=== PATIENT | female | born 1945 | race Caucasian/White ===

== ENCOUNTER 2019-09-21 11:10 | Outpatient (CLI) | payer MEDICARE, SELFPAY ==
[2019-09-21 11:53] LABS: Basophils % 0.5 %; Eosinophils # 0.1 10^3/uL (0.0-0.8); Eosinophils % 1.1 %; Hematocrit 45.5 % (37.0-47.0); Lymphocytes # 2.1 10^3/uL (0.8-4.8); Lymphocytes % 39.1 %; Mean Corpuscular Hemoglobin 29.2 pg (28.0-34.0); Mean Corpuscular Volume 88.5 fL (81-99); Mean Platelet Volume 12.3 fL (7.4-10.4); Monocytes # 0.5 10^3/uL (0.2-0.9); Monocytes % 9.3 %; Neutrophils # 2.7 10^3/uL (1.8-7.7); Neutrophils % 49.8 %; Nucleated Red Blood Cells % 0 %; Platelet Count 138 10^3/cmm (130-400); Red Blood Count 5.14 10^6/uL (4.1-5.3); Red Cell Distribution Width 12.9 % (12.1-15.1); White Blood Count 5.5 10^3/uL (4.0-10.0)
[2019-09-21 12:10] LABS: Alanine Aminotransferase 40 U/L (0-33); Albumin Level 4.2 g/dL (3.5-5.2); Alkaline Phosphatase 104 IU/L (35-105); Anion Gap 15.9 (5-19); Aspartate Amino Transferase 53 U/L (0-32); Blood Urea Nitrogen 18 mg/dL (8-23); Calcium 10.9 mg/Dl (8.8-10.2); Carbon Dioxide 27 mmol/L (22-29); Chloride 99 mmol/L (98-107); Glucose 116 mg/dL (74-106); Lactate Dehydrogenase 225 U/L (135-214); Potassium 3.9 mmol/L (3.5-5.1); Sodium 138 mmol/L (136-145); Total Bilirubin 0.9 mg/dL (0.15-1.2); Total Protein 8.2 g/dL (6.6-8.7)
--- NOTE | 2019-09-25 20:33 | ONC FU_ITS ---
Dr. Walton Patient Follow-Up Note Patient: Siobhan Oliver Unit #: [id number]: 1945 Dicatated By: Sergio Walton M.D.Date of Visit:Sep 21, 2019 Onc Med Follow-up/Prog Note Chief Complaint: Breast cancer/acute promyelocytic leukemia. 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 She had presented with a left breast palpable nodule. Her mammogram on 09/16/2012 showed a 2.7 cm mass in the left breast located posterior to the nipple. She was diagnosed with stage IIB (pT2, pN1a, M0) infiltrating ductal carcinoma of the left breast in September 2013, status post an excisional biopsy. Surgical pathology showed 2.5 cm infiltrating ductal carcinoma, grade 1/3, with positive margins. Prognostic profile was ER 99%, WI 97%, HER-2/anthony 1+ by IHC, FISH not amplified at 1.1. On 10/29/2013 she underwent a left modified radical mastectomy and axillary node dissection. Her surgical pathology showed residual microscopic foci of the tumor in the breast parenchyma distant from the previous biopsy site and in the dermal connective tissue of the skin overlying the nipple. Margins were negative. One sentinel lymph node out of total 8 harvested lymph nodes was positive for metastatic disease. Her surgery was complicated with significant hematoma and recurrent Staph infection, retreated with Bactrim. CT of the abdomen and pelvis on 11/13/2013 showed diffuse fatty liver infiltration but no evidence of metastatic disease. She had a baseline significant hepatic transaminitis up to 2 times of upper limit of normal. She received adjuvant systemic chemotherapy with 4 cycles of docetaxel and cyclophosphamide from 12/07/13 to 03/12/14. She had significant hyperglycemia. Her transaminitis also deepened transiently, but did not progress. She began on adjuvant Arimidex in May 2014. Adjuvant radiation treatment to the chest wall and the left supraclavicular region was completed on 06/03/14, during which she developed acute pancreatitis. She also had worsening diffuse bone aches. Bone scan on 08/02/2015 was negative for metastatic disease, but showed diffuse arthropathy. On 07/21/2015 CA 15 3 was 36, which was down from 42 on 11/12/2013. CA-27-29 was 56. Significance of elevated tumor markers was unclear. Restaging CT of the chest, abdomen, and pelvis on 12/09/2015 was without metastatic disease. She continued adjuvant hormonal therapy with anastrozole. On a follow-up visit in August 2016, her CBC showed normal hemoglobin at 14.2 g, but the white count had decreased to 2100 and the platelet count had decreased to 94,000. The absolute neutrophil count was 1000. She continued Arimidex. A repeat CBC on 09/18/2016 showed hemoglobin stable at 13.9 g but with further decrease in the white blood cell count to 1500 with ANC 400. The platelet count was down to 89,000. Bone marrow aspiration/biopsy on 10/11/2016 showed acute myeloid leukemia with a t (15;17) translocation 90% of metaphases, consistent with acute promyelocytic leukemia. She was referred to [facility] for treatment of the leukemia. She has been under the care of Dr. Coretta Barnes. She underwent induction therapy with arsenic trioxide and Atra at [facility] from 10/20/2016 to 12/05/2016. On 12/24/2016 she began her maintenance therapy, which consisting of four 8-week cycles of treatment with arsenic trioxide and prednisone together with Atra. With each cycle the arsenic trioxide was administered on days 1 through 5 weekly for 4 weeks followed by 4 weeks off treatment. The Atra was administered on a 2-week on/2-week schedule. She began her 4th cycle on 06/10/2017. She completed her last treatment on 07/05/2017. She had a follow-up visit at [facility] on 07/08/2017. At that point she was felt to be in remission. Her other medical illnesses include hypertension, hyperlipidemia, type II diabetes, and GERD. She has a history of pancreatitis. She also has peripheral neuropathy, restless leg syndrome, and anxiety/depression. She has a history of smoking 1 pack of cigarettes daily for 15 years. She quit smoking more than 35 years ago. INTERIM HISTORY: In August 2017 she began further adjuvant hormonal therapy with exemestane 25 mg daily. She had followup at [facility] on 11/04/2017. Her bone marrow biopsy showed no morphologic evidence of acute leukemia. She had a follow-up here on 11/06/2017, and that at point she continued exemestane, though she was having some fatigue with it. Subsequent to that visit, she continued to have worsening fatigue, and I did opt to have her stop the exemestane. I had seen her for a follow-up visit again on 01/29/2018, and at that point she did agree to continue adjuvant hormonal therapy with tamoxifen 20 mg daily. At her followup visit on 02/09/2019 the tamoxifen was put on hold due to increased fatigue and musculoskeletal pain. She is seen for a scheduled visit. She has been feeling pretty good generally. She has pretty energy in the mornings. Her ECOG score is 1. She has good appetite. She has no fever, night sweats, or hot flashes. She has some shortness of breath, which she attributes to her weight. She has not had cough, and she does not complain of chest pain. Last week she was having nausea and diarrhea, but that has resolved. She has no other GI or complaints. She has pain in her back and knees, which is chronic. She also complains that her ankles swell. She does not complain of headache. She says her balance is not that great. She has numbness in the lateral aspect of her left thigh. She has no other focal neurologic symptoms. Medications: Atorvastatin Calcium 1 Tablet (of 10 mg) Oral daily, Calcium 1 Tablet (of 600 mg) Oral daily, Furosemide 1 Tablet (of 20 mg) Oral daily, Gabapentin 1 (300 mg) Capsule Oral t.i.d., Hydrocodone-Acetaminophen 1 - 2 (7.5-325 mg) Tablet Oral four times a day PRN, Ibuprofen 1 - 2 (200 mg) Capsule Oral four times a day PRN, Klor-Con M10 1 Tablet (of 10 meq) Tablet, controlled release Oral daily, Losartan Potassium 1 Tablet (of 50 mg) Oral daily, ROPINIRole HCl 1 Tablet (of 1 mg) Oral t.i.d., Vitamin D3 2 Tablet (of 2000 Units) Tablet Oral daily Allergies: Anesthesia Needle [id number] Review of Systems: Constitutional - Her energy is okay. She does light work at home. Her activity is somewhat restricted due to swelling and pain. Her appetite is good and her weight is up 12 pounds since her last visit. No fever, chills, hot flashes, or night sweats. ECOG score is 1, ENMT - No sinus congestion/drainage. No mouth sores. No sore throat or difficulty swallowing, Hematologic/Lymphatic - No abnormal bruising or bleeding, Respiratory - She has some shortness of breath with activity. No cough. No pleuritic pain or hemoptysis, Cardiovascular - No angina pain. No palpitations, Gastrointestinal - No heartburn or acid reflux. She had an episode of nausea and diarrhea last week. Her symptoms have resolved. No blood in the stool or black stools, Genitourinary (F) - No dysuria or hematuria. No urinary frequency. No urgency or incontinence, Musculoskeletal - She has pain in her back and knees, Integumentary - No skin complications, Neurologic - No headache or dizziness. She has numbness in her left thigh if she stands too long. She has trouble with her balance, Psychiatric - No anxiety or depression. No insomnia. Vital Signs: Performed on Sep 21, 2019 12:45 Height - 62.00 in Weight - 212.2 lbs (HIGH) BSA - 1.96 sq.m BMI - 38.81 (HIGH) Temperature - 98.5 F Pulse - 75 /min Respiration - 24 /min BP - 124/62 mm(hg) O2 Sat - 95 % (LOW) Pain - 8 Physical Examination: Constitutional - She looks pretty good generally, but she has limited mobility, Eyes - Sclerae nonicteric. Conjunctivae clear, ENMT - No lesions noted in the oral cavity, Hematologic/Lymphatic - No cervical or clavicular adenopathy, Respiratory - Lungs are clear with good air movement bilaterally, Cardiovascular - Heart rhythm is regular. There is a II/ systolic murmur. There is no gallop or rub noted, Breasts - The right breast shows no mass. There are no lesions noted in the left chest wall. There is no axillary adenopathy, Abdomen - Soft. Liver and spleen are not enlarged. There is no abdominal mass or ascites noted and there is no inguinal adenopathy, Extremities - Mild edema. Dorsalis pedis pulses are palpable bilaterally, Neurologic - No focal neurologic deficits noted. Lab/Imaging: Test performed on Sep 21, 2019 11:21 Glucose 116 mg/dL BUN 18 mg/dL Creatinine 0.9 mg/dL Cr Clearance (Est) 82.0700 mL/min Sodium 138 mmol/L Potassium 3.9 mmol/L Chloride 99 mmol/L CO2 27 mmol/L Calcium 10.9 mg/dL Protein, Total 8.2 g/dL Albumin 4.2 g/dL Globulin 4.0 g/dL Bilirubin, Total 0.9 mg/dL Alkaline Phosphatase 104 IU/L AST (SGOT) 53 IU/L ALT (SGPT) 40 IU/L WBC 5.5 10^9/L RBC 5.14 10^12/L HGB 15.0 g/dL HCT 45.5 % MCV 88.5 fl MCH 29.2 pg MCHC 33.0 g/dL RDW 12.9 % Platelet Count 138 10^9/L MPV 12.3 fL Neutrophils (Gran) 2.7 10^9/L Lymphocytes 2.1 10^9/L Monocytes 0.5 10^9/L Eosinophils 0.1 10^9/L Basophils 0.0 10^9/L Manual Lymphocytes 39.1 % Manual Monocytes 9.3 % Manual Eosinophils 1.1 % Manual Basophils 0.5 % NRBCs 0.0 /100 WBC Impression: 1. Patient with multifocal grade 1 infiltrating ductal carcinoma of the left breast, pathologic stage least IIB (pT2, pN1a, M0), ER/WI positive and HER-2/anthony negative. She underwent left right modified radical mastectomy on 10/29/13. 2. She received adjuvant chemotherapy with docetaxel and cyclophosphamide 12/07/13 - 03/12/14, complicated with grade 2 peripheral neuropathy. She had baseline transaminitis which remained without progression. 3. She completed adjuvant radiation treatment on 06/03/14. She began on adjuvant hormonal therapy with Arimidex 1 mg daily in April 2014. Restaging CT of the chest, abdomen, and pelvis on 12/09/2015 was without evidence of disease. 4. She developed progressive pancytopenia since August 2016. Her bone marrow aspiration/biopsy on 10/11/2016 was consistent with acute promyelocytic leukemia. Her other medical illnesses include: 5. Hypertension. 6. Hyperlipidemia. 7. Type II diabetes. 8. GERD. 9. Peripheral neuropathy. 10. Restless leg syndrome. 11. Anxiety/depression. 11. She has a history of pancreatitis. She underwent induction therapy with arsenic trioxide and Atra at [facility] from 10/20/2016 to 12/05/2016. She began cycle 1 of maintenance therapy with arsenic trioxide/prednisone together with Atra on 12/24/2016. She began her 4th cycle of maintenance on 06/10/2017, and she completed her last treatment on 07/05/2017. As of her follow-up at [facility] on 11/04/2017, her leukemia appeared to be in sustained remission. In August 2017 she began further adjuvant hormonal therapy with exemestane 25 mg daily. As of her follow-up visit here on 11/06/2017 she was having some fatigue with it, but it was tolerable. Unfortunately, the fatigue continued to worsen, to the point that she did have to stop taking it. In December 2017 she began further adjuvant hormonal therapy with tamoxifen 20 mg daily. As of her followup visit on 02/09/2019 the tamoxifen was put on hold due to fatigue and significant worsening of joint/bone pain. She has since then been followed on observation/expectant management. Thus far she has been doing well clinically with no evidence of recurrence of the breast cancer or the leukemia. Plan: She remains on observation/expectant management. I will see her again in 6 months, or sooner as needed. Signed By: Sergio Walton M.D. <<Signature on File>>
== END 2019-09-21 11:11 | disposition home or self-care (01) ==
PROVIDERS: Family Provider Electrodiagnostic Medicine; PCP Electrodiagnostic Medicine; Visit Provider Internal Medicine Medical Oncology
DX: C92.41 Acute promyelocytic leukemia, in remission (principal); Z85.3 Personal history of malignant neoplasm of breast; I10 Essential (primary) hypertension; E78.5 Hyperlipidemia, unspecified; E11.9 Type 2 diabetes mellitus without complications; K21.9 Gastro-esophageal reflux disease without esophagitis; G62.9 Polyneuropathy, unspecified; G25.81 Restless legs syndrome; F41.8 Other specified anxiety disorders; Z79.891 Long term (current) use of opiate analgesic; Z90.13 Acquired absence of bilateral breasts and nipples; Z92.21 Personal history of antineoplastic chemotherapy; Z92.3 Personal history of irradiation; Z92.23 Personal history of estrogen therapy; Z87.891 Personal history of nicotine dependence
CPT/HCPCS: 36591; 80053; 83615; 85025; G0463

== ENCOUNTER 2019-10-28 09:06 | Outpatient (CLI) | payer MEDICARE, SELFPAY | END 2019-10-28 09:07 | disposition home or self-care (01) | LOC: ONCMED 09:09 | PROVIDERS: Family Provider Electrodiagnostic Medicine; PCP Electrodiagnostic Medicine; Visit Provider Internal Medicine Medical Oncology | DX: Z45.2 Encounter for adjustment and management of vascular access device (principal) | CPT/HCPCS: 96523 ==

== ENCOUNTER 2019-12-03 13:55 | Outpatient (CLI) | payer MEDICARE, SELFPAY | END 2019-12-03 13:56 | disposition home or self-care (01) | LOC: ONCMED 13:56 | PROVIDERS: Family Provider Electrodiagnostic Medicine; PCP Electrodiagnostic Medicine; Visit Provider Internal Medicine Medical Oncology | DX: Z45.2 Encounter for adjustment and management of vascular access device (principal) | CPT/HCPCS: 96523 ==

== ENCOUNTER 2020-01-04 13:34 | Outpatient (CLI) | payer MEDICARE, SELFPAY | END 2020-01-04 13:35 | disposition home or self-care (01) | LOC: ONCMED 13:36 | PROVIDERS: Family Provider Electrodiagnostic Medicine; PCP Electrodiagnostic Medicine; Visit Provider Internal Medicine Medical Oncology | DX: Z45.2 Encounter for adjustment and management of vascular access device (principal); C50.112 Malignant neoplasm of central portion of left female breast; C92.41 Acute promyelocytic leukemia, in remission; D61.818 Other pancytopenia | CPT/HCPCS: 96523 ==

== ENCOUNTER 2020-01-19 09:41 | Outpatient (CLI) | payer MEDICARE, SELFPAY ==
--- NOTE | 2020-01-19 10:25 | MM_ITS ---
WS: [id number] DIAGNOSTIC RIGHT DIGITAL MAMMOGRAM WITH CAD HISTORY: HX malignant NEOPLASM, LEFT BREAST MASTECTOMY. COMPARISON: None available. Technique: CC, MLO and ML views. Breast composition: There are scattered areas of fibroglandular density. No suspicious masses or joaquín cifications. Benign vascular calcifications. MM/[place] [id number] IMPRESSION: BI-RADS: 2-Benign FOLLOW UP: 1 Year Follow-up
== END 2020-01-19 09:42 | disposition home or self-care (01) ==
LOC: RADSHAW 09:51
PROVIDERS: PCP Electrodiagnostic Medicine; Visit Provider Internal Medicine Medical Oncology
DX: Z85.3 Personal history of malignant neoplasm of breast (principal)
CPT/HCPCS: 77065

== ENCOUNTER 2020-02-19 10:13 | Outpatient (CLI) | payer MEDICARE, SELFPAY | END 2020-02-19 10:14 | disposition home or self-care (01) | LOC: ONCMED 10:17 | PROVIDERS: PCP Electrodiagnostic Medicine; Visit Provider Internal Medicine Medical Oncology | DX: Z45.2 Encounter for adjustment and management of vascular access device (principal) | CPT/HCPCS: 96523 ==

== ENCOUNTER 2020-03-08 11:57 | Outpatient (CLI) | payer MEDICARE, SELFPAY ==
[2020-03-08 12:34] LABS: Basophils % 0.7 %; Eosinophils # 0.1 10^3/uL (0.0-0.8); Eosinophils % 2.4 %; Hematocrit 44.5 % (37.0-47.0); Hemoglobin 14.5 g/dL (11.5-15.3); Lymphocytes # 1.8 10^3/uL (0.8-4.8); Lymphocytes % 33.3 %; Mean Corpuscular HGB Conc 32.6 g/dL (30.0-36.0); Mean Corpuscular Hemoglobin 29.6 pg (28.0-34.0); Mean Corpuscular Volume 90.8 fL (81-99); Mean Platelet Volume 12.4 fL (7.4-10.4); Monocytes # 0.6 10^3/uL (0.2-0.9); Monocytes % 10.1 %; Neutrophils # 2.9 10^3/uL (1.8-7.7); Neutrophils % 53.1 %; Nucleated Red Blood Cells % 0 %; Platelet Count 117 10^3/cmm (130-400); Red Cell Distribution Width 13.2 % (12.1-15.1); White Blood Count 5.5 10^3/uL (4.0-10.0)
[2020-03-08 13:28] LABS: Alanine Aminotransferase 32 U/L (0-33); Albumin Level 4.1 g/dL (3.5-5.2); Alkaline Phosphatase 94 IU/L (35-105); Anion Gap 14.9 (5-19); Aspartate Amino Transferase 46 U/L (0-32); Blood Urea Nitrogen 19 mg/dL (8-23); Calcium 10.4 mg/dL (8.5-10.5); Carbon Dioxide 26 mmol/L (22-29); Chloride 101 mmol/L (98-107); Globulin 3.9 g/dL (1.3-4.6); Glucose 118 mg/dL (65-115); Lactate Dehydrogenase 213 U/L (135-214); Osmolality Calculated 284 mOsm/kg (285-295); Potassium 3.9 mmol/L (3.5-5.1); Sodium 138 mmol/L (136-145)
--- NOTE | 2020-03-11 18:20 | ONC FU_ITS ---
Dr. Walton Patient Follow-Up Note Patient: Siobhan Oliver Unit #: [id number]: 1945 Dicatated By: Sergio Walton M.D.Date of Visit:Mar 08, 2020 Onc Med Follow-up/Prog Note Chief Complaint: Breast cancer/acute promyelocytic leukemia. 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 She had presented with a left breast palpable nodule. Her mammogram on 09/16/2012 showed a 2.7 cm mass in the left breast located posterior to the nipple. She was diagnosed with stage IIB (pT2, pN1a, M0) infiltrating ductal carcinoma of the left breast in September 2013, status post an excisional biopsy. Surgical pathology showed 2.5 cm infiltrating ductal carcinoma, grade 1/3, with positive margins. Prognostic profile was ER 99%, MA 97%, HER-2/anthony 1+ by IHC, FISH not amplified at 1.1. On 10/29/2013 she underwent a left modified radical mastectomy and axillary node dissection. Her surgical pathology showed residual microscopic foci of the tumor in the breast parenchyma distant from the previous biopsy site and in the dermal connective tissue of the skin overlying the nipple. Margins were negative. One sentinel lymph node out of total 8 harvested lymph nodes was positive for metastatic disease. Her surgery was complicated with significant hematoma and recurrent Staph infection, retreated with Bactrim. CT of the abdomen and pelvis on 11/13/2013 showed diffuse fatty liver infiltration but no evidence of metastatic disease. She had a baseline significant hepatic transaminitis up to 2 times of upper limit of normal. She received adjuvant systemic chemotherapy with 4 cycles of docetaxel and cyclophosphamide from 12/07/13 to 03/12/14. She had significant hyperglycemia. Her transaminitis also deepened transiently, but did not progress. She began on adjuvant Arimidex in May 2014. Adjuvant radiation treatment to the chest wall and the left supraclavicular region was completed on 06/03/14, during which she developed acute pancreatitis. She also had worsening diffuse bone aches. Bone scan on 08/02/2015 was negative for metastatic disease, but showed diffuse arthropathy. On 07/21/2015 CA 15 3 was 36, which was down from 42 on 11/12/2013. CA-27-29 was 56. Significance of elevated tumor markers was unclear. Restaging CT of the chest, abdomen, and pelvis on 12/09/2015 was without metastatic disease. She continued adjuvant hormonal therapy with anastrozole. On a follow-up visit in August 2016, her CBC showed normal hemoglobin at 14.2 g, but the white count had decreased to 2100 and the platelet count had decreased to 94,000. The absolute neutrophil count was 1000. She continued Arimidex. A repeat CBC on 09/18/2016 showed hemoglobin stable at 13.9 g but with further decrease in the white blood cell count to 1500 with ANC 400. The platelet count was down to 89,000. Bone marrow aspiration/biopsy on 10/11/2016 showed acute myeloid leukemia with a t (15;17) translocation 90% of metaphases, consistent with acute promyelocytic leukemia. She was referred to [facility] for treatment of the leukemia. She has been under the care of Dr. Coretta Barnes. She underwent induction therapy with arsenic trioxide and Atra at [facility] from 10/20/2016 to 12/05/2016. On 12/24/2016 she began her maintenance therapy, which consisting of four 8-week cycles of treatment with arsenic trioxide and prednisone together with Atra. With each cycle the arsenic trioxide was administered on days 1 through 5 weekly for 4 weeks followed by 4 weeks off treatment. The Atra was administered on a 2-week on/2-week schedule. She began her 4th cycle on 06/10/2017. She completed her last treatment on 07/05/2017. She had a follow-up visit at [facility] on 07/08/2017. At that point she was felt to be in remission. In August 2017 she began further adjuvant hormonal therapy with exemestane 25 mg daily. She had followup at [facility] on 11/04/2017. Her bone marrow biopsy showed no morphologic evidence of acute leukemia. She had a follow-up here on 11/06/2017, and that at point she continued exemestane, though she was having some fatigue with it. Subsequent to that visit, she continued to have worsening fatigue, and I did opt to have her stop the exemestane. I had seen her for a follow-up visit again on 01/29/2018, and at that point she did agree to continue adjuvant hormonal therapy with tamoxifen 20 mg daily. At her followup visit on 02/09/2019 the tamoxifen was put on hold due to increased fatigue and musculoskeletal pain, and she was then followed on observation/expectant management. Her other medical illnesses include hypertension, hyperlipidemia, type II diabetes, and GERD. She has a history of pancreatitis. She also has peripheral neuropathy, restless leg syndrome, and anxiety/depression. She has a history of smoking 1 pack of cigarettes daily for 15 years. She quit smoking more than 35 years ago. INTERIM HISTORY: She is seen for a scheduled visit. She has been feeling fine for her lower back, which she has been hurting more. She had x-rays, which apparently just showed arthritis. Her energy has been okay. She does have limited activity. ECOG score is 1. She has good appetite. She has gained weight. She does not have fever, night sweats, or hot flashes. She has no shortness of breath or cough. She has some pain intermittently in the lateral left chest wall and axilla. She otherwise does not have chest pain. She has heartburn occasionally. She says her bowels have been mostly runny. She has no complaints. She also has pain in her knees and ankles. She does not complain of headache. She has ongoing problems with her balance. She sometimes has numbness/tingling in her left arm. Medications: Atorvastatin Calcium 1 Tablet (of 10 mg) Oral daily, Calcium 1 Tablet (of 600 mg) Oral daily, Furosemide 1 Tablet (of 20 mg) Oral daily, Gabapentin 1 (300 mg) Capsule Oral t.i.d., Hydrocodone-Acetaminophen 1 - 2 (7.5-325 mg) Tablet Oral four times a day PRN, Ibuprofen 1 - 2 (200 mg) Capsule Oral four times a day PRN, Klor-Con M10 1 Tablet (of 10 meq) Tablet, controlled release Oral daily, Losartan Potassium 1 Tablet (of 50 mg) Oral daily, ROPINIRole HCl 1 Tablet (of 1 mg) Oral t.i.d., Vitamin D3 2 Tablet (of 2000 Units) Tablet Oral daily Allergies: Midazolam Review of Systems: Constitutional - She is feeling good generally. Her energy has been OK. She is able to do light housework. Her appetite is good and her weight is up about 6 pounds from last visit. No fever, night sweats, or hot flashes. ECOG score is 1, ENMT - No sinus congestion/drainage. No mouth sores. No sore throat or difficulty swallowing, Hematologic/Lymphatic - No abnormal bruising or bleeding, Breasts - She has intermittent pain in her left breast area near mastectomy site, Respiratory - No shortness of breath. No cough. No pleuritic pain or hemoptysis, Cardiovascular - No angina pain. No palpitations, Gastrointestinal - No nausea or vomiting. She occasionally has heartburn or acid reflux. No diarrhea or constipation. She says her bowels lately have been mostly runny. No blood in the stool or black stools, Genitourinary (F) - No dysuria or hematuria. No urinary frequency. No urgency or incontinence, Musculoskeletal - She has some lower back pain. She also has generalized joint pain, especially the knees and ankles. Her pain is adequately managed with hydrocodone/APAP- 7.5/325 mg, Integumentary - No skin complications, Neurologic - No headache or dizziness. She continues to have difficulty with her equilibrium. No numbness or tingling. No other focal neurologic symptoms, Psychiatric - No anxiety or depression. No insomnia. Vital Signs: Performed on Mar 08, 2020 13:44 Height - 62.00 in Weight - 218.2 lbs (HIGH) BSA - 1.98 sq.m BMI - 39.91 (HIGH) Temperature - 99.1 F (HIGH) Pulse - 100 /min Respiration - 24 /min BP - 96/59 mm(hg) O2 Sat - 94 % (LOW) Pain - 0 Physical Examination: Constitutional - She looks pretty good generally, Eyes - Sclerae nonicteric. Conjunctivae clear, ENMT - No lesions noted in the oral cavity, Hematologic/Lymphatic - No cervical or clavicular adenopathy, Respiratory - Lungs are clear with good air movement bilaterally, Cardiovascular - Heart rhythm is regular. There is a II/ systolic murmur. There is no gallop or rub noted, Breasts - There are no lesions noted in the left chest wall. There is no axillary adenopathy, Abdomen - Soft. Liver and spleen are not enlarged. There is no abdominal mass or ascites noted and there is no inguinal adenopathy, Extremities - Mild edema. Dorsalis pedis pulses are palpable bilaterally, Neurologic - No focal neurologic deficits noted. Lab/Imaging: Test performed on Mar 08, 2020 12:10 LDH (Total) 213 U/L Sodium 138 mmol/L Potassium 3.9 mmol/L Chloride 101 mmol/L CO2 26 mmol/L Anion Gap 14.9 BUN 19 mg/dL Creatinine 0.8 mg/dL Cr Clearance (Est) 93.48 mL/min Glucose 118 mg/dL Calcium 10.4 mg/dL Protein, Total 8.0 g/dL Albumin 4.1 g/dL Globulin 3.9 g/dL Bilirubin, Total 1.0 mg/dL ALT (SGPT) 32 U/L AST (SGOT) 46 U/L Alkaline Phosphatase 94 IU/L WBC 5.5 10 3/uL RBC 4.90 10 6/uL HGB 14.5 g/dL HCT 44.5 % MCV 90.8 fL MCH 29.6 pg MCHC 32.6 g/dL RDW 13.2 % Platelet Count 117 10 3/cmm MPV 12.4 fL Neutrophils 2.9 10 3/uL Lymphocytes 1.8 10 3/uL Monocytes 0.6 10 3/uL Eosinophils 0.1 10 3/uL Basophils 0.0 10 3/uL Neutrophil % 53.1 % Lymphocyte % 33.3 % Monocyte % 10.1 % Eosinophil % 2.4 % Basophils % 0.7 % NRBC % 0 % Impression: 1. Patient with multifocal grade 1 infiltrating ductal carcinoma of the left breast, pathologic stage least IIB (pT2, pN1a, M0), ER/MA positive and HER-2/anthony negative. She underwent left right modified radical mastectomy on 10/29/13. 2. She received adjuvant chemotherapy with docetaxel and cyclophosphamide 12/07/13 - 03/12/14, complicated with grade 2 peripheral neuropathy. She had baseline transaminitis which remained without progression. 3. She completed adjuvant radiation treatment on 06/03/14. She began on adjuvant hormonal therapy with Arimidex 1 mg daily in April 2014. Restaging CT of the chest, abdomen, and pelvis on 12/09/2015 was without evidence of disease. 4. She developed progressive pancytopenia since August 2016. Her bone marrow aspiration/biopsy on 10/11/2016 was consistent with acute promyelocytic leukemia. Her other medical illnesses include: 5. Hypertension. 6. Hyperlipidemia. 7. Type II diabetes. 8. GERD. 9. Peripheral neuropathy. 10. Restless leg syndrome. 11. Anxiety/depression. 11. She has a history of pancreatitis. She underwent induction therapy with arsenic trioxide and Atra at [facility] from 10/20/2016 to 12/05/2016. She began cycle 1 of maintenance therapy with arsenic trioxide/prednisone together with Atra on 12/24/2016. She began her 4th cycle of maintenance on 06/10/2017, and she completed her last treatment on 07/05/2017. As of her follow-up at [facility] on 11/04/2017, her leukemia appeared to be in sustained remission. In August 2017 she began further adjuvant hormonal therapy with exemestane 25 mg daily. As of her follow-up visit here on 11/06/2017 she was having some fatigue with it, but it was tolerable. Unfortunately, the fatigue continued to worsen, to the point that she did have to stop taking it. In December 2017 she began further adjuvant hormonal therapy with tamoxifen 20 mg daily. As of her followup visit on 02/09/2019 the tamoxifen was put on hold due to fatigue and significant worsening of joint/bone pain. She was then followed on observation/expectant management. Since her last visit she has had some increase in lower back pain, but that appears to be due to degenerative disease. She has otherwise been doing well, though her blood pressure is on the low side. Thus far there has been no evidence of recurrence of the breast cancer or relapse of the leukemia. Plan: She continues observation/expectant management. I will see her again in 6 months. In the meantime, with her blood pressure being low, she will stop losartan. She can restart at one half the dosage if her blood pressure becomes elevated. Signed By: Sergio Walton M.D. <<Signature on File>>
== END 2020-03-08 11:58 | disposition home or self-care (01) ==
LOC: ONCMED 11:57
PROVIDERS: PCP Electrodiagnostic Medicine; Visit Provider Internal Medicine Medical Oncology
DX: Z08 Encounter for follow-up examination after completed treatment for malignant neoplasm (principal); Z85.3 Personal history of malignant neoplasm of breast; Z85.6 Personal history of leukemia; I10 Essential (primary) hypertension; E78.5 Hyperlipidemia, unspecified; K21.9 Gastro-esophageal reflux disease without esophagitis; E11.42 Type 2 diabetes mellitus with diabetic polyneuropathy; G25.81 Restless legs syndrome; F41.8 Other specified anxiety disorders; Z79.891 Long term (current) use of opiate analgesic; Z92.21 Personal history of antineoplastic chemotherapy; Z92.23 Personal history of estrogen therapy; Z92.3 Personal history of irradiation; Z90.12 Acquired absence of left breast and nipple; Z87.891 Personal history of nicotine dependence
CPT/HCPCS: 36591; 80053; 83615; 85025; 99214

== ENCOUNTER 2020-05-18 14:20 | Outpatient (CLI) | payer MEDICARE, SELFPAY | END 2020-05-18 14:21 | disposition home or self-care (01) | PROVIDERS: PCP Electrodiagnostic Medicine; Visit Provider Internal Medicine Medical Oncology | DX: Z45.2 Encounter for adjustment and management of vascular access device (principal) | CPT/HCPCS: 96523 ==

== ENCOUNTER 2020-08-19 09:54 | Outpatient (CLI) | payer MEDICARE, SELFPAY | END 2020-08-19 09:55 | disposition home or self-care (01) | LOC: ONCMED 09:57 | PROVIDERS: PCP Electrodiagnostic Medicine; Visit Provider Internal Medicine Medical Oncology | DX: Z45.2 Encounter for adjustment and management of vascular access device (principal) | CPT/HCPCS: 96523 ==

== ENCOUNTER 2020-09-19 11:47 | Outpatient (CLI) | payer MEDICARE, SELFPAY ==
[2020-09-19 12:13] LABS: Basophils % 0.6 %; Eosinophils # 0.1 10^3/uL (0.0-0.8); Eosinophils % 1.5 %; Hematocrit 43.5 % (37.0-47.0); Hemoglobin 14.1 g/dL (11.5-15.3); Lymphocytes # 1.9 10^3/uL (0.8-4.8); Lymphocytes % 35.6 %; Mean Corpuscular HGB Conc 32.4 g/dL (30.0-36.0); Mean Corpuscular Hemoglobin 29.7 pg (28.0-34.0); Mean Corpuscular Volume 91.8 fL (81-99); Mean Platelet Volume 12.2 fL (7.4-10.4); Monocytes # 0.5 10^3/uL (0.2-0.9); Monocytes % 9.6 %; Neutrophils # 2.84 10^3/uL (1.8-7.7); Neutrophils % 52.3 %; Nucleated Red Blood Cells % 0 %; Platelet Count 123 10^3/cmm (130-400); Red Blood Count 4.74 10^6/uL (4.1-5.3); Red Cell Distribution Width 13.3 % (12.1-15.1); White Blood Count 5.4 10^3/uL (4.0-10.0)
[2020-09-19 12:54] LABS: Alanine Aminotransferase 32 U/L (0-33); Albumin Level 3.8 g/dL (3.5-5.2); Alkaline Phosphatase 94 IU/L (35-105); Anion Gap 11.5 (5-19); Aspartate Amino Transferase 34 U/L (0-32); Blood Urea Nitrogen 20 mg/dL (8-23); Calcium 10.1 mg/dL (8.5-10.5); Carbon Dioxide 29 mmol/L (22-29); Chloride 100 mmol/L (98-107); Globulin 3.6 g/dL (1.3-4.6); Glucose 208 mg/dL (65-115); Lactate Dehydrogenase 216 U/L (135-214); Osmolality Calculated 293 mOsm/kg (285-295); Potassium 3.5 mmol/L (3.5-5.1); Sodium 137 mmol/L (136-145); Total Bilirubin 0.7 mg/dL (0.15-1.2); Total Protein 7.4 g/dL (6.6-8.7)
--- NOTE | 2020-09-23 14:16 | ONC FU_ITS ---
Dr. Walton Patient Follow-Up Note Patient: Siobhan Oliver Unit #: [id number]: 1945 Dicatated By: Sergio Walton M.D.Date of Visit:Sep 19, 2020 Onc Med Follow-up/Prog Note Chief Complaint: Breast cancer/acute promyelocytic leukemia. 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 She had presented with a left breast palpable nodule. Her mammogram on 09/16/2012 showed a 2.7 cm mass in the left breast located posterior to the nipple. She was diagnosed with stage IIB (pT2, pN1a, M0) infiltrating ductal carcinoma of the left breast in September 2013, status post an excisional biopsy. Surgical pathology showed 2.5 cm infiltrating ductal carcinoma, grade 1/3, with positive margins. Prognostic profile was ER 99%, VA 97%, HER-2/anthony 1+ by IHC, FISH not amplified at 1.1. On 10/29/2013 she underwent a left modified radical mastectomy and axillary node dissection. Her surgical pathology showed residual microscopic foci of the tumor in the breast parenchyma distant from the previous biopsy site and in the dermal connective tissue of the skin overlying the nipple. Margins were negative. One sentinel lymph node out of total 8 harvested lymph nodes was positive for metastatic disease. Her surgery was complicated with significant hematoma and recurrent Staph infection, retreated with Bactrim. CT of the abdomen and pelvis on 11/13/2013 showed diffuse fatty liver infiltration but no evidence of metastatic disease. She had a baseline significant hepatic transaminitis up to 2 times of upper limit of normal. She received adjuvant systemic chemotherapy with 4 cycles of docetaxel and cyclophosphamide from 12/07/13 to 03/12/14. She had significant hyperglycemia. Her transaminitis also deepened transiently, but did not progress. She began on adjuvant Arimidex in May 2014. Adjuvant radiation treatment to the chest wall and the left supraclavicular region was completed on 06/03/14, during which she developed acute pancreatitis. She also had worsening diffuse bone aches. Bone scan on 08/02/2015 was negative for metastatic disease, but showed diffuse arthropathy. On 07/21/2015 CA 15 3 was 36, which was down from 42 on 11/12/2013. CA-27-29 was 56. Significance of elevated tumor markers was unclear. Restaging CT of the chest, abdomen, and pelvis on 12/09/2015 was without metastatic disease. She continued adjuvant hormonal therapy with anastrozole. On a follow-up visit in August 2016, her CBC showed normal hemoglobin at 14.2 g, but the white count had decreased to 2100 and the platelet count had decreased to 94,000. The absolute neutrophil count was 1000. She continued Arimidex. A repeat CBC on 09/18/2016 showed hemoglobin stable at 13.9 g but with further decrease in the white blood cell count to 1500 with ANC 400. The platelet count was down to 89,000. Bone marrow aspiration/biopsy on 10/11/2016 showed acute myeloid leukemia with a t (15;17) translocation 90% of metaphases, consistent with acute promyelocytic leukemia. She was referred to [facility] for treatment of the leukemia. She has been under the care of Dr. Coretta Barnes. She underwent induction therapy with arsenic trioxide and Atra at [facility] from 10/20/2016 to 12/05/2016. On 12/24/2016 she began her maintenance therapy, which consisting of four 8-week cycles of treatment with arsenic trioxide and prednisone together with Atra. With each cycle the arsenic trioxide was administered on days 1 through 5 weekly for 4 weeks followed by 4 weeks off treatment. The Atra was administered on a 2-week on/2-week schedule. She began her 4th cycle on 06/10/2017. She completed her last treatment on 07/05/2017. She had a follow-up visit at [facility] on 07/08/2017. At that point she was felt to be in remission. In August 2017 she began further adjuvant hormonal therapy with exemestane 25 mg daily. She had followup at [facility] on 11/04/2017. Her bone marrow biopsy showed no morphologic evidence of acute leukemia. She had a follow-up here on 11/06/2017, and that at point she continued exemestane, though she was having some fatigue with it. Subsequent to that visit, she continued to have worsening fatigue, and I did opt to have her stop the exemestane. I had seen her for a follow-up visit again on 01/29/2018, and at that point she did agree to continue adjuvant hormonal therapy with tamoxifen 20 mg daily. At her followup visit on 02/09/2019 the tamoxifen was put on hold due to increased fatigue and musculoskeletal pain, and she was then followed on observation/expectant management. Her other medical illnesses include hypertension, hyperlipidemia, type II diabetes, and GERD. She has a history of pancreatitis. She also has peripheral neuropathy, degenerative arthritis, restless leg syndrome, and anxiety/depression. She has a history of smoking 1 pack of cigarettes daily for 15 years. She quit smoking more than 35 years ago. INTERIM HISTORY: She is seen for a scheduled visit. She has been feeling pretty good generally. She says her energy is okay, though not the best. ECOG score is 1. She has good appetite. She has no fever, night sweats, or hot flashes. She sometimes huffs and puffs with activity, but that she attributes to her weight. She does not complain of cough. She occasionally has soreness in her upper left chest below her Port-A-Cath site. She otherwise does not complain of chest pain. She occasionally has nausea and she has a little bit of acid reflux. She says her bowels have been runny for a while, but that comes and goes. She has no complaints. She says her joints have been really sore, prickly her knees and ankles. She also has back pain. She does not complain of headache or dizziness, and she has no focal neurologic symptoms. Medications: Atorvastatin Calcium 1 Tablet (of 10 mg) Oral daily, Calcium 1 Tablet (of 600 mg) Oral daily, Furosemide 1 Tablet (of 20 mg) Oral daily PRN, Gabapentin 1 (300 mg) Capsule Oral t.i.d., Hydrocodone-Acetaminophen 1 - 2 (7.5-325 mg) Tablet Oral four times a day PRN, Ibuprofen 1 - 2 (200 mg) Capsule Oral four times a day PRN, Klor-Con M10 1 Tablet (of 10 meq) Tablet, controlled release Oral daily, Losartan Potassium 1 Tablet (of 50 mg) Oral daily, ROPINIRole HCl 1 Tablet (of 1 mg) Oral t.i.d., Vitamin D3 2 Tablet (of 2000 Units) Tablet Oral daily Allergies: Midazolam Vital Signs: Performed on Sep 19, 2020 13:34 Height - 62.00 in Weight - 230 lbs (HIGH) BSA - 2.03 sq.m BMI - 42.07 (HIGH) Temperature - 97.6 F (LOW) Pulse - 83 /min Respiration - 18 /min BP - 127/70 mm(hg) O2 Sat - 96 % Pain - 0 Fatigue - 0 Physical Examination: Constitutional - She looks pretty good generally, Eyes - Sclerae nonicteric. Conjunctivae clear, ENMT - No lesions noted in the oral cavity, Hematologic/Lymphatic - No cervical, clavicular, or axillary adenopathy, Respiratory - Lungs are clear with good air movement bilaterally, Cardiovascular - Heart rhythm is regular. There is a II/ systolic murmur. There is no gallop or rub noted, Abdomen - Soft. Liver and spleen are not enlarged. There is no abdominal mass or ascites noted and there is no inguinal adenopathy, Extremities - Mild edema. Dorsalis pedis pulses are palpable bilaterally, Neurologic - No focal neurologic deficits noted. Lab/Imaging: Test performed on Sep 19, 2020 12:00 LDH (Total) 216 U/L Sodium 137 mmol/L Potassium 3.5 mmol/L Chloride 100 mmol/L CO2 29 mmol/L Anion Gap 11.5 BUN 20 mg/dL Creatinine 0.9 mg/dL Cr Clearance (Est) 87.58 mL/min Glucose 208 mg/dL Osmolality - Calculated 293 mOsm/kg Calcium 10.1 mg/dL Protein, Total 7.4 g/dL Albumin 3.8 g/dL Globulin 3.6 g/dL Bilirubin, Total 0.7 mg/dL ALT (SGPT) 32 U/L AST (SGOT) 34 U/L Alkaline Phosphatase 94 IU/L WBC 5.4 10 3/uL RBC 4.74 10 6/uL HGB 14.1 g/dL HCT 43.5 % MCV 91.8 fL MCH 29.7 pg MCHC 32.4 g/dL RDW 13.3 % Platelet Count 123 10 3/cmm MPV 12.2 fL Neutrophils 2.84 10 3/uL Lymphocytes 1.9 10 3/uL Monocytes 0.5 10 3/uL Eosinophils 0.1 10 3/uL Basophils 0.0 10 3/uL Neutrophil % 52.3 % Lymphocyte % 35.6 % Monocyte % 9.6 % Eosinophil % 1.5 % Basophils % 0.6 % NRBC % 0 % Problem List: 1. Multifocal grade 1 infiltrating ductal carcinoma of the left breast, pathologic stage IIB (pT2, pN1a, M0), ER/VA positive and HER-2/anthony negative. She underwent left modified radical mastectomy on 10/29/2013. 2. She received adjuvant chemotherapy with 4 cycles of docetaxel/cyclophosphamide completed in March 2014, complicated with grade 2 peripheral neuropathy. 3. She completed adjuvant radiation treatment on 06/03/2014. She began on adjuvant hormonal therapy with anastrozole 1 mg daily in April 2014. It was stopped in October 2016 due to worsening pancytopenia. 4. She developed progressive pancytopenia since August 2016. Her bone marrow aspiration/biopsy on 10/11/2016 was consistent with acute promyelocytic leukemia. She underwent induction therapy with arsenic trioxide and Atra at [facility] from 10/20/2016 to 12/05/2016. 5. She then began maintenance therapy with arsenic trioxide/prednisone together with Atra. She completed her last treatment on 07/05/2017. As of her follow-up at [facility] on 11/04/2017, her leukemia appeared to be in sustained remission. 6. Hypertension. 7. Hyperlipidemia. 8. Type II diabetes. 9. GERD. 10. Peripheral neuropathy. 11. Degenerative arthritis. 12. Restless leg syndrome. 13. Anxiety/depression. 13. She has a history of pancreatitis. Problems Addressed with this Encounter and Plan: 1. Multifocal grade 1 infiltrating ductal carcinoma of the left breast, pathologic stage IIB (pT2, pN1a, M0), ER/VA positive and HER-2/anthony negative. She underwent left modified radical mastectomy on 10/29/2013. She was given postoperative adjuvant chemotherapy and prophylactic chest wall radiation, and in April 2014 she began adjuvant hormonal therapy with anastrozole 1 mg daily. It was stopped in October 2016 due to worsening pancytopenia. In August 2017 she began further adjuvant hormonal therapy with exemestane 25 mg daily. As of her follow-up visit here on 11/06/2017 she was having some fatigue with it, but it was tolerable. Unfortunately, the fatigue continued to worsen, to the point that she did have to stop taking it. In December 2017 she began further adjuvant hormonal therapy with tamoxifen 20 mg daily. As of her followup visit on 02/09/2019 the tamoxifen was put on hold due to fatigue and significant worsening of joint/bone pain. She was then followed on observation/expectant management. Overall, she appears to be doing pretty well clinically. She is over 6 years out from completion of chemotherapy and radiation, thus far with no evidence of recurrence of the breast cancer. She remains on observation/expectant management. She would like to get her Port-A-Cath removed now, and I will arrange that with Dr. Yadav. She will be scheduled for a follow-up visit in 6 months. 2. Acute promyelocytic leukemia. She underwent induction therapy with arsenic trioxide and Atra at [facility] from 10/20/2016 to 12/05/2016. She then began maintenance therapy with arsenic trioxide/prednisone together with Atra. She completed her last treatment on 07/05/2017. As of her follow-up at [facility] on 11/04/2017, her leukemia appeared to be in sustained remission. During her further follow-up her blood counts have remained adequate and stable. Thus far there has been no evidence of relapse of the leukemia. She remains on observation/expectant management. 3. She has degenerative arthritis and she has persistent neuropathy pain following chemotherapy. She has had adequate symptomatic management with hydrocodone/APAP, and that will be continued at the same dosage. Signed By: Sergio Walton M.D. <<Signature on File>>
== END 2020-09-19 11:48 | disposition home or self-care (01) ==
LOC: ONCMED 11:49
PROVIDERS: PCP Electrodiagnostic Medicine; Visit Provider Internal Medicine Medical Oncology
DX: Z08 Encounter for follow-up examination after completed treatment for malignant neoplasm (principal); Z85.3 Personal history of malignant neoplasm of breast; C92.41 Acute promyelocytic leukemia, in remission; G62.0 Drug-induced polyneuropathy; T45.1X5S Adverse effect of antineoplastic and immunosuppressive drugs, sequela; Z92.23 Personal history of estrogen therapy; Z92.21 Personal history of antineoplastic chemotherapy; Z92.3 Personal history of irradiation; Z79.891 Long term (current) use of opiate analgesic
CPT/HCPCS: 36591; 80053; 83615; 85025; 99214

== ENCOUNTER 2020-12-02 09:56 | Outpatient (CLI) | payer MEDICARE, SELFPAY | END 2020-12-02 09:57 | disposition home or self-care (01) | PROVIDERS: PCP Electrodiagnostic Medicine; Visit Provider Internal Medicine Medical Oncology | DX: Z45.2 Encounter for adjustment and management of vascular access device (principal) | CPT/HCPCS: 96523 ==

== ENCOUNTER → 2020-12-19 11:27 | Outpatient (BNVA) | payer MEDICARE, SELFPAY | PROVIDERS: PCP Electrodiagnostic Medicine; Visit Provider Surgery | DX: Z95.828 Presence of other vascular implants and grafts (principal) | CPT/HCPCS: 87635 ==

== ENCOUNTER 2020-12-22 05:46 | Day surgery (SDC) | payer MEDICARE, SELFPAY ==
[2020-12-21 16:50] VITALS: BMI 41.1
[2020-12-22] VITALS (9 sets, daily range): BP systolic 139–162; BP diastolic 75–94; PULSE 62–70; RESP 12–20; TEMP 36.1; O2SAT 95–97
[2020-12-22] MEDS: sodium chloride 0.9% 1,000 ML 30 ML IV (06:20)
--- NOTE | 2020-12-22 07:20 | W.PM.OPSUD ---
Surgery/Procedure H&P Update DATE OF PROCEDURE: December 22, 2020 DATE H&P PERFORMED: 12/09/20 H&P UPDATE INFORMATION: I have reviewed H&P completed within last 30 days, I have examined patient prior to procedure and No changes to prior documentation PREOP DIAGNOSIS: Port-A-Cath PLANNED PROCEDURE: Operation Date: 12/22/20 07:00 Proposed Procedures p Portacath Removal [id number](Not Applicable) - Deion Santiago MD
[2020-12-22] MEDS: lidocaine 1% INJ 20 mL INJECTION (07:35)
--- NOTE | 2020-12-22 07:51 | PM.OP ---
Operative Report Date of procedure: December 22, 2020 Pre-op Diagnosis: Port-A-Cath removal Post-op diagnosis: same Procedure Done: Removal of Port-A-Cath from the left subclavian Inocencio Pathology: none sent Surgeon: Deion Santiago Anesthesia: Local Condition: stable Disposition: PACU Procedure: Patient was taken to the operating room and her right chest was prepped and draped in a sterile manner. 1% lidocaine with 0.5% Marcaine was infiltrated around the MediPort and catheter in the left subclavian vein. Using a 15 blade the previous incision was opened, the subcutaneous tissue was divided using electrocautery and MediPort along the catheter was dissected free from the surrounding subcutaneous tissue and removed entirely. The capsule around the port was excised. The wound was irrigated with saline, hemostasis ensured with electrocautery and subcutaneous tissue was approximated using 3-0 Vicryl suture and skin was closed using running subcuticular 4-0 Monocryl suture. The patient was transferred to the recovery room in stable condition.
== END 2020-12-22 08:09 | disposition home or self-care (01) ==
PROVIDERS: PCP Electrodiagnostic Medicine; Visit Provider Surgery
PROC: (CPT 36589; principal; 2020-12-22 07:00)
DX: Z45.2 Encounter for adjustment and management of vascular access device (principal); Z85.3 Personal history of malignant neoplasm of breast; E78.5 Hyperlipidemia, unspecified; I10 Essential (primary) hypertension
CPT/HCPCS: 36590; J3490; J7030

== ENCOUNTER 2021-01-06 09:15 | Outpatient (CLI) | payer MEDICARE, SELFPAY ==
--- NOTE | 2021-01-06 09:20 | MM_ITS ---
WS: [id number] Right breast diagnostic digital mammogram, 01/06/2021 Clinical Data: HX OF BREAST CA;LT MAST Comparison: 01/19/2020, 12/31/2018, 12/04/2017, 09/26/2015, 09/22/2014, 09/16/2013. Findings: Fibroglandular tissue is noted. There are no spiculated masses or clustered calcifications. There are lymph nodes in the right axilla. There are no secondary signs of carcinoma. MM/[place] [id number] Impression: 1. Negative right breast mammogram unchanged. 2. Recommend annual right breast mammogram. BIRADS: 1-Negative FOLLOW UP: 1 Year Follow-up The CAD gas meter checker was used.
== END 2021-01-06 09:16 | disposition home or self-care (01) ==
LOC: RADSHAW 09:16
PROVIDERS: PCP Electrodiagnostic Medicine; Visit Provider Internal Medicine Medical Oncology
DX: Z85.3 Personal history of malignant neoplasm of breast (principal); Z90.12 Acquired absence of left breast and nipple
CPT/HCPCS: 77065

== ENCOUNTER 2021-04-24 11:21 | Outpatient (CLI) | payer MEDICARE, SELFPAY ==
[2021-04-24 12:09] LABS: Basophils % 0.8 %; Eosinophils # 0.1 10^3/uL (0.0-0.8); Eosinophils % 2.3 %; Hematocrit 43.3 % (37.0-47.0); Hemoglobin 14.2 g/dL (11.5-15.3); Lymphocytes # 1.8 10^3/uL (0.8-4.8); Lymphocytes % 34.2 %; Mean Corpuscular HGB Conc 32.8 g/dL (30.0-36.0); Mean Corpuscular Volume 91.4 fl (81-99); Mean Platelet Volume 12.4 fL (7.4-10.4); Monocytes # 0.6 10^3/uL (0.2-0.9); Neutrophils # 2.71 10^3/uL (1.8-7.7); Neutrophils % 51.5 %; Nucleated Red Blood Cells % 0 %; Platelet Count 116 10^3/cmm (130-400); Red Blood Count 4.74 10^6/uL (4.1-5.3); Red Cell Distribution Width 13.2 % (12.1-15.1); White Blood Count 5.3 10^3/uL (4.0-10.0)
[2021-04-24 13:13] LABS: Alanine Aminotransferase 46 U/L (0-33); Albumin Level 3.8 g/dL (3.5-5.2); Alkaline Phosphatase 95 IU/L (35-105); Anion Gap 17.9 (5-19); Aspartate Amino Transferase 40 U/L (0-32); Blood Urea Nitrogen 19 mg/dL (8-23); Calcium 9.2 mg/dL (8.5-10.5); Carbon Dioxide 23 mmol/L (22-29); Chloride 102 mmol/L (98-107); Globulin 3.4 g/dL (1.3-4.6); Glucose 111 mg/dL (65-115); Lactate Dehydrogenase 213 U/L (135-214); Osmolality Calculated 291 mOsm/kg (285-295); Potassium 3.9 mmol/L (3.5-5.1); Sodium 139 mmol/L (136-145); Total Bilirubin 0.7 mg/dL (0.15-1.2); Total Protein 7.2 g/dL (6.6-8.7)
--- NOTE | 2021-04-25 07:09 | ONC FU_ITS ---
Dr. Walton Patient Follow-Up Note Patient: Siobhan Oliver Unit #: [id number]: 1945 Dicatated By: Sergio Walton M.D.Date of Visit:Apr 24, 2021 Onc Med Follow-up/Prog Note Chief Complaint: Breast cancer/acute promyelocytic leukemia. 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 She had presented with a left breast palpable nodule. Her mammogram on 09/16/2012 showed a 2.7 cm mass in the left breast located posterior to the nipple. She was diagnosed with stage IIB (pT2, pN1a, M0) infiltrating ductal carcinoma of the left breast in September 2013, status post an excisional biopsy. Surgical pathology showed 2.5 cm infiltrating ductal carcinoma, grade 1/3, with positive margins. Prognostic profile was ER 99%, MO 97%, HER-2/anthony 1+ by IHC, FISH not amplified at 1.1. On 10/29/2013 she underwent a left modified radical mastectomy and axillary node dissection. Her surgical pathology showed residual microscopic foci of the tumor in the breast parenchyma distant from the previous biopsy site and in the dermal connective tissue of the skin overlying the nipple. Margins were negative. One sentinel lymph node out of total 8 harvested lymph nodes was positive for metastatic disease. Her surgery was complicated with significant hematoma and recurrent Staph infection, retreated with Bactrim. CT of the abdomen and pelvis on 11/13/2013 showed diffuse fatty liver infiltration but no evidence of metastatic disease. She had a baseline significant hepatic transaminitis up to 2 times of upper limit of normal. She received adjuvant systemic chemotherapy with 4 cycles of docetaxel and cyclophosphamide from 12/07/13 to 03/12/14. She had significant hyperglycemia. Her transaminitis also deepened transiently, but did not progress. She began on adjuvant Arimidex in May 2014. Adjuvant radiation treatment to the chest wall and the left supraclavicular region was completed on 06/03/14, during which she developed acute pancreatitis. She also had worsening diffuse bone aches. Bone scan on 08/02/2015 was negative for metastatic disease, but showed diffuse arthropathy. On 07/21/2015 CA 15 3 was 36, which was down from 42 on 11/12/2013. CA-27-29 was 56. Significance of elevated tumor markers was unclear. Restaging CT of the chest, abdomen, and pelvis on 12/09/2015 was without metastatic disease. She continued adjuvant hormonal therapy with anastrozole. On a follow-up visit in August 2016, her CBC showed normal hemoglobin at 14.2 g, but the white count had decreased to 2100 and the platelet count had decreased to 94,000. The absolute neutrophil count was 1000. She continued Arimidex. A repeat CBC on 09/18/2016 showed hemoglobin stable at 13.9 g but with further decrease in the white blood cell count to 1500 with ANC 400. The platelet count was down to 89,000. Bone marrow aspiration/biopsy on 10/11/2016 showed acute myeloid leukemia with a t (15;17) translocation 90% of metaphases, consistent with acute promyelocytic leukemia. She was referred to [facility] for treatment of the leukemia. She has been under the care of Dr. Coretta Barnes. She underwent induction therapy with arsenic trioxide and Atra at [facility] from 10/20/2016 to 12/05/2016. On 12/24/2016 she began her maintenance therapy, which consisting of four 8-week cycles of treatment with arsenic trioxide and prednisone together with Atra. With each cycle the arsenic trioxide was administered on days 1 through 5 weekly for 4 weeks followed by 4 weeks off treatment. The Atra was administered on a 2-week on/2-week schedule. She began her 4th cycle on 06/10/2017. She completed her last treatment on 07/05/2017. She had a follow-up visit at [facility] on 07/08/2017. At that point she was felt to be in remission. In August 2017 she began further adjuvant hormonal therapy with exemestane 25 mg daily. She had followup at [facility] on 11/04/2017. Her bone marrow biopsy showed no morphologic evidence of acute leukemia. She had a follow-up here on 11/06/2017, and that at point she continued exemestane, though she was having some fatigue with it. Subsequent to that visit, she continued to have worsening fatigue, and I did opt to have her stop the exemestane. I had seen her for a follow-up visit again on 01/29/2018, and at that point she did agree to continue adjuvant hormonal therapy with tamoxifen 20 mg daily. At her followup visit on 02/09/2019 the tamoxifen was put on hold due to increased fatigue and musculoskeletal pain, and she was then followed on observation/expectant management. Her other medical illnesses include hypertension, hyperlipidemia, type II diabetes, and GERD. She has a history of pancreatitis. She also has peripheral neuropathy, degenerative arthritis, restless leg syndrome, and anxiety/depression. She has a history of smoking 1 pack of cigarettes daily for 15 years. She quit smoking more than 35 years ago. INTERIM HISTORY: She is seen for a followup visit. She has been feeling good generally. She does have some mild fatigue, but she has pretty much normal activity. ECOG score is 0. Her appetite is good. She has no fever, night sweats, or hot flashes. She has not had sore mouth or throat. She has no shortness of breath, cough, or chest pain. She has very occasional nausea. She has no other GI or complaints. She has chronic pain in her back and she also has pain in her knees and sometimes in her hips. It does not seem to be getting any worse. She does not complain of headache or dizziness, but she does tend to get off balance. She sometimes has numbness in her hands. Medications: Atorvastatin Calcium 1 Tablet (of 10 mg) Oral daily, Calcium 1 Tablet (of 600 mg) Oral daily, Furosemide 1 Tablet (of 20 mg) Oral daily PRN, Gabapentin 1 (300 mg) Capsule Oral t.i.d., Hydrocodone-Acetaminophen 1 - 2 (7.5-325 mg) Tablet Oral four times a day PRN, Ibuprofen 1 - 2 (200 mg) Capsule Oral four times a day PRN, Klor-Con M10 1 Tablet (of 10 meq) Tablet, controlled release Oral daily, Losartan Potassium 1 Tablet (of 50 mg) Oral daily, ROPINIRole HCl 1 Tablet (of 1 mg) Oral t.i.d., Vitamin D3 2 Tablet (of 2000 Units) Tablet Oral daily Allergies: Midazolam Vital Signs: Performed on Apr 24, 2021 12:54 Height - 62.00 in Weight - 227.8 lbs (LOW) BSA - 2.02 sq.m BMI - 41.67 (HIGH) Temperature - 98.3 F (LOW) Pulse - 92 /min Respiration - 18 /min BP - 134/83 mm(hg) O2 Sat - 95 % (LOW) Pain - 10 Fatigue - 0 Physical Examination: Constitutional - She looks pretty good generally, Eyes - Sclerae nonicteric. Conjunctivae clear, ENMT - No lesions noted in the oral cavity, Hematologic/Lymphatic - No cervical or clavicular adenopathy, Respiratory - Lungs are clear with good air movement bilaterally, Cardiovascular - Heart rhythm is regular. There is a II/ systolic murmur. There is no gallop or rub noted, Breasts - There are no lesions noted in the left chest wall. There is no axillary adenopathy noted, Abdomen - Soft. Liver and spleen are not enlarged. There is no abdominal mass or ascites noted and there is no inguinal adenopathy, Extremities - Mild edema, Neurologic - No focal neurologic deficits noted. Lab/Imaging: Test performed on Apr 24, 2021 11:42 LDH (Total) 213 U/L Sodium 139 mmol/L Potassium 3.9 mmol/L Chloride 102 mmol/L CO2 23 mmol/L Anion Gap 17.9 BUN 19 mg/dL Creatinine 0.8 mg/dL Cr Clearance (Est) 96.0600 mL/min Glucose 111 mg/dL Osmolality - Calculated 291 mOsm/kg Calcium 9.2 mg/dL Protein, Total 7.2 g/dL Albumin 3.8 g/dL Globulin 3.4 g/dL Bilirubin, Total 0.7 mg/dL ALT (SGPT) 46 U/L AST (SGOT) 40 U/L Alkaline Phosphatase 95 IU/L WBC 5.3 10 3/uL RBC 4.74 10 6/uL HGB 14.2 g/dL HCT 43.3 % MCV 91.4 fl MCH 30.0 pg MCHC 32.8 g/dL RDW 13.2 % Platelet Count 116 10 3/cmm MPV 12.4 fL Neutrophils 2.71 10 3/uL Lymphocytes 1.8 10 3/uL Monocytes 0.6 10 3/uL Eosinophils 0.1 10 3/uL Basophils 0.0 10 3/uL Neutrophil % 51.5 % Lymphocyte % 34.2 % Monocyte % 11.0 % Eosinophil % 2.3 % Basophils % 0.8 % NRBC % 0 % Problem List: 1. Multifocal grade 1 infiltrating ductal carcinoma of the left breast, pathologic stage IA (pT2, pN1a, M0), ER/MO positive and HER-2/anthony negative. She underwent left modified radical mastectomy on 10/29/2013. 2. She developed progressive pancytopenia since August 2016. Her bone marrow aspiration/biopsy on 10/11/2016 was consistent with acute promyelocytic leukemia. 3. Hypertension. 4. Hyperlipidemia. 5. Type II diabetes. 6. GERD. 7. Peripheral neuropathy. 8. Degenerative arthritis. 9. Restless leg syndrome. 10. Anxiety/depression. 11. She has a history of pancreatitis. Problems Addressed with this Encounter and Plan: 1. Patient with multifocal grade 1 infiltrating ductal carcinoma of the left breast, pathologic stage IA (pT2, pN1a, M0), ER/MO positive and HER-2/anthony negative. She underwent left modified radical mastectomy on 10/29/2013. She received adjuvant chemotherapy with 4 cycles of docetaxel/cyclophosphamide completed in March 2014, complicated with grade 2 peripheral neuropathy. She completed adjuvant radiation treatment on 06/03/2014. She began on adjuvant hormonal therapy with anastrozole 1 mg daily in April 2014. It was stopped in October 2016 due to worsening pancytopenia. In August 2017 she began further adjuvant hormonal therapy with exemestane 25 mg daily. As of her follow-up visit here on 11/06/2017 she was having some fatigue with it, but it was tolerable. Unfortunately, the fatigue continued to worsen, to the point that she did have to stop taking it. In December 2017 she began further adjuvant hormonal therapy with tamoxifen 20 mg daily. As of her followup visit on 02/09/2019 the tamoxifen was put on hold due to fatigue and significant worsening of joint/bone pain. She was then followed on observation/expectant management. At this point she appears to be doing well clinically. She continues to have pain associated with her degenerative arthritis, but that does not seem to be getting significantly worse. Thus far there has been no evidence of recurrence of the breast cancer. She continues expectant management. I will see her again in 6 months. 2. She developed progressive pancytopenia since August 2016. Her bone marrow aspiration/biopsy on 10/11/2016 was consistent with acute promyelocytic leukemia. She underwent induction therapy with arsenic trioxide and Atra at [facility] from 10/20/2016 to 12/05/2016. She then began maintenance therapy with arsenic trioxide/prednisone together with Atra. She completed her last treatment on 07/05/2017. As of her follow-up at [facility] on 11/04/2017, her leukemia appeared to be in sustained remission. During her further follow-up her blood counts have remained adequate and stable. Thus far there has been no evidence of relapse of the leukemia. She remains on observation/expectant management. 3. She has degenerative arthritis and she has persistent neuropathy pain following chemotherapy. She has had adequate symptomatic management with hydrocodone/APAP, and that will be continued at the same dosage. Signed By: Sergio Walton M.D. <<Signature on File>>
== END 2021-04-24 11:22 | disposition home or self-care (01) ==
LOC: ONCMED 11:25
PROVIDERS: PCP Electrodiagnostic Medicine; Visit Provider Internal Medicine Medical Oncology
DX: Z08 Encounter for follow-up examination after completed treatment for malignant neoplasm (principal); Z85.3 Personal history of malignant neoplasm of breast; Z85.6 Personal history of leukemia; Z92.21 Personal history of antineoplastic chemotherapy; Z87.891 Personal history of nicotine dependence; Z90.12 Acquired absence of left breast and nipple
CPT/HCPCS: 36415; 80053; 83615; 85025; 99214

== ENCOUNTER → 2021-09-20 08:49 | Outpatient (BNVA) | payer MEDICARE, SELFPAY | PROVIDERS: PCP Electrodiagnostic Medicine; Referring Provider Electrodiagnostic Medicine; Visit Provider Specialist | DX: M17.0 Bilateral primary osteoarthritis of knee (principal); M25.561 Pain in right knee; M25.562 Pain in left knee | CPT/HCPCS: 73560; 73565 ==

== ENCOUNTER 2021-10-30 10:55 | Outpatient (CLI) | payer MEDICARE, SELFPAY ==
[2021-10-30 11:51] LABS: Basophils % 0.7 %; Eosinophils # 0.2 10^3/uL (0.0-0.8); Eosinophils % 4.2 %; Hematocrit 43.3 % (37.0-47.0); Hemoglobin 13.9 g/dL (11.5-15.3); Lymphocytes # 1.4 10^3/uL (0.8-4.8); Lymphocytes % 30.8 %; Mean Corpuscular HGB Conc 32.1 g/dL (30.0-36.0); Mean Corpuscular Hemoglobin 29.7 pg (28.0-34.0); Mean Corpuscular Volume 92.5 fl (81-99); Mean Platelet Volume 12.3 fL (7.4-10.4); Monocytes # 0.4 10^3/uL (0.2-0.9); Monocytes % 9.4 %; Neutrophils # 2.44 10^3/uL (1.8-7.7); Neutrophils % 54.5 %; Nucleated Red Blood Cells % 0 %; Platelet Count 111 10^3/cmm (130-400); Red Blood Count 4.68 10^6/uL (4.1-5.3); White Blood Count 4.5 10^3/uL (4.0-10.0)
[2021-10-30 12:36] LABS: Alanine Aminotransferase 36 U/L (0-33); Albumin Level 3.9 g/dL (3.5-5.2); Alkaline Phosphatase 105 IU/L (35-105); Anion Gap 13.9 (5-19); Aspartate Amino Transferase 39 U/L (0-32); Blood Urea Nitrogen 31 mg/dL (8-23); Calcium 10.2 mg/dL (8.5-10.5); Carbon Dioxide 27 mmol/L (22-29); Chloride 98 mmol/L (98-107); Glucose 124 mg/dL (65-115); Osmolality Calculated 288 mOsm/kg (285-295); Potassium 3.9 mmol/L (3.5-5.1); Sodium 135 mmol/L (136-145); Total Bilirubin 0.9 mg/dL (0.15-1.2); Total Protein 7.9 g/dL (6.6-8.7)
--- NOTE | 2021-11-03 13:00 | ONC FU_ITS ---
Dr. Walton Patient Follow-Up Note Patient: Siobhan Oliver Unit #: [id number]: [id number] Dicatated By: Sergio Walton M.D.Date of Visit:Oct 30, 2021 Onc Med Follow-up/Prog Note Chief Complaint: Breast cancer/acute promyelocytic leukemia. History of Present Illness: This is a 75 year-old woman with multifocal grade 1 infiltrating ductal carcinoma of the left breast, stage IA (pT2, pN1a, M0), ER/TN positive and HER-2/anthony negative. 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 She had presented with a left breast palpable nodule. Her mammogram on 09/16/2012 showed a 2.7 cm mass in the left breast located posterior to the nipple. She was diagnosed with stage IIB (pT2, pN1a, M0) infiltrating ductal carcinoma of the left breast in September 2013, status post an excisional biopsy. Surgical pathology showed 2.5 cm infiltrating ductal carcinoma, grade 1/3, with positive margins. Prognostic profile was ER 99%, TN 97%, HER-2/anthony 1+ by IHC, FISH not amplified at 1.1. On 10/29/2013 she underwent a left modified radical mastectomy and axillary node dissection. Her surgical pathology showed residual microscopic foci of the tumor in the breast parenchyma distant from the previous biopsy site and in the dermal connective tissue of the skin overlying the nipple. Margins were negative. One sentinel lymph node out of total 8 harvested lymph nodes was positive for metastatic disease. Her surgery was complicated with significant hematoma and recurrent Staph infection, retreated with Bactrim. CT of the abdomen and pelvis on 11/13/2013 showed diffuse fatty liver infiltration but no evidence of metastatic disease. She had a baseline significant hepatic transaminitis up to 2 times of upper limit of normal. She received adjuvant systemic chemotherapy with 4 cycles of docetaxel and cyclophosphamide from 12/07 to 03/12/2014. She had significant hyperglycemia. Her transaminitis also deepened transiently, but did not progress. She began on adjuvant Arimidex in May 2014. Adjuvant radiation treatment to the chest wall and the left supraclavicular region was completed on 06/03/2014, during which she developed acute pancreatitis. She also had worsening diffuse bone aches. Bone scan on 08/02/2015 was negative for metastatic disease, but showed diffuse arthropathy. Restaging CT of the chest, abdomen, and pelvis on 12/09/2015 was without metastatic disease. She continued adjuvant hormonal therapy with anastrozole. On a follow-up visit in August 2016, her CBC showed normal hemoglobin at 14.2 g, but the white count had decreased to 2100 and the platelet count had decreased to 94,000. The absolute neutrophil count was 1000. She continued Arimidex. A repeat CBC on 09/18/2016 showed hemoglobin stable at 13.9 g but with further decrease in the white blood cell count to 1500 with ANC 400. The platelet count was down to 89,000. Bone marrow aspiration/biopsy on 10/11/2016 showed acute myeloid leukemia with a t (15;17) translocation 90% of metaphases, consistent with acute promyelocytic leukemia. She was referred to [facility] for treatment of the leukemia. She underwent induction therapy with arsenic trioxide and Atra at [facility] from 10/20/2016 to 12/05/2016. On 12/24/2016 she began her maintenance therapy, which consisting of four 8-week cycles of treatment with arsenic trioxide and prednisone together with Atra. With each cycle the arsenic trioxide was administered on days 1 through 5 weekly for 4 weeks followed by 4 weeks off treatment. The Atra was administered on a 2-week on/2-week schedule. She began her 4th cycle on 06/10/2017. She completed her last treatment on 07/05/2017. She had a follow-up visit at [facility] on 07/08/2017. At that point she was felt to be in remission. In August 2017 she began further adjuvant hormonal therapy with exemestane 25 mg daily. She had followup at [facility] on 11/04/2017. Her bone marrow biopsy showed no morphologic evidence of acute leukemia. She had a follow-up here on 11/06/2017, and that at point she continued exemestane, though she was having some fatigue with it. Subsequent to that visit, she continued to have worsening fatigue, and I did opt to have her stop the exemestane. I had seen her for a follow-up visit again on 01/29/2018, and at that point she did agree to continue adjuvant hormonal therapy with tamoxifen 20 mg daily. At her followup visit on 02/09/2019 the tamoxifen was put on hold due to increased fatigue and musculoskeletal pain, and she was then followed on observation/expectant management. Her other medical illnesses include hypertension, hyperlipidemia, type II diabetes, and GERD. She has a history of pancreatitis. She also has peripheral neuropathy, degenerative arthritis, restless leg syndrome, and anxiety/depression. She has a history of smoking 1 pack of cigarettes daily for 15 years. She quit smoking more than 35 years ago. INTERIM HISTORY: She is seen for a followup visit. She has been feeling pretty good generally. She says she had COVID-19 virus infection at the end of September. Her major symptom was nausea. She was given steroid therapy, an inhaler, and aspirin. She had uneventful recovery. She says her energy is better now. Her ECOG score is 1. She has good appetite. She has gained weight. She does not have fever, night sweats, or hot flashes. She has just occasional cough. She says her breathing is okay except for her weight. She does not complain of chest pain. She has had nausea and she occasionally has heartburn. She also has occasional loose stool. She has some slight bladder incontinence. She has joint pain, mainly in her knees. She does not complain of headache. She does complain that her balance is off. She has no numbness/paresthesia or other focal neurologic symptoms. Medications: Aspirin (325 mg) Tablet Oral daily, Atorvastatin Calcium 1 Tablet (of 10 mg) Oral daily, Calcium 1 Tablet (of 600 mg) Oral daily, Furosemide 1 Tablet (of 20 mg) Oral daily PRN, Gabapentin 1 (300 mg) Capsule Oral t.i.d., Hydrocodone-Acetaminophen 1 - 2 (7.5-325 mg) Tablet Oral four times a day PRN, Ibuprofen 1 - 2 (200 mg) Capsule Oral four times a day PRN, Klor-Con M10 1 Tablet (of 10 meq) Tablet, controlled release Oral daily, Losartan Potassium 1 Tablet (of 50 mg) Oral daily, ROPINIRole HCl 1 Tablet (of 1 mg) Oral t.i.d., Vitamin D3 2 Tablet (of 2000 Units) Tablet Oral daily, Zinc Capsule Oral daily Allergies: Midazolam Vital Signs: Performed on Oct 30, 2021 13:08 Height - 62.00 in Weight - 229.8 lbs (HIGH) BSA - 2.03 sq.m BMI - 42.03 (HIGH) Temperature - 97.5 F (LOW) Pulse - 81 /min Respiration - 16 /min BP - 135/75 mm(hg) O2 Sat - 95 % (LOW) Pain - 0 Fatigue - 4 Physical Examination: Constitutional - She looks pretty good generally, Eyes - Sclerae nonicteric. Conjunctivae clear, ENMT - No lesions noted in the oral cavity, Hematologic/Lymphatic - No cervical, clavicular, or axillary adenopathy, Respiratory - Lungs are clear with good air movement bilaterally, Cardiovascular - Heart rhythm is regular. There is a II/ systolic murmur. There is no gallop or rub noted, Abdomen - Mildly distended but soft. Liver and spleen are not enlarged. There is no abdominal mass or ascites noted and there is no inguinal adenopathy, Extremities - Mild edema, Neurologic - No focal neurologic deficits noted. Lab/Imaging: Test performed on Oct 30, 2021 11:32 Sodium 135 mmol/L Potassium 3.9 mmol/L Chloride 98 mmol/L CO2 27 mmol/L Anion Gap 13.9 BUN 31 mg/dL Creatinine 1.0 mg/dL Cr Clearance (Est) 77.53 mL/min Glucose 124 mg/dL Osmolality - Calculated 288 mOsm/kg Calcium 10.2 mg/dL Protein, Total 7.9 g/dL Albumin 3.9 g/dL Globulin 4.0 g/dL Bilirubin, Total 0.9 mg/dL ALT (SGPT) 36 U/L AST (SGOT) 39 U/L Alkaline Phosphatase 105 IU/L WBC 4.5 10 3/uL RBC 4.68 10 6/uL HGB 13.9 g/dL HCT 43.3 % MCV 92.5 fl MCH 29.7 pg MCHC 32.1 g/dL RDW 14.0 % Platelet Count 111 10 3/cmm MPV 12.3 fL Neutrophils 2.44 10 3/uL Lymphocytes 1.4 10 3/uL Monocytes 0.4 10 3/uL Eosinophils 0.2 10 3/uL Basophils 0.0 10 3/uL Neutrophil % 54.5 % Lymphocyte % 30.8 % Monocyte % 9.4 % Eosinophil % 4.2 % Basophils % 0.7 % NRBC % 0 % Problem List: 1. Multifocal grade 1 infiltrating ductal carcinoma of the left breast, pathologic stage IA (pT2, pN1a, M0), ER/TN positive and HER-2/anthony negative. She underwent left modified radical mastectomy on 10/29/2013. 2. She developed progressive pancytopenia since August 2016. Her bone marrow aspiration/biopsy on 10/11/2016 was consistent with acute promyelocytic leukemia. 3. Hypertension. 4. Hyperlipidemia. 5. Type II diabetes. 6. GERD. 7. Peripheral neuropathy. 8. Degenerative arthritis. 9. Restless leg syndrome. 10. Anxiety/depression. 11. She has a history of pancreatitis. Problems Addressed with this Encounter and Plan: 1. Patient with multifocal grade 1 infiltrating ductal carcinoma of the left breast, pathologic stage IA (pT2, pN1a, M0), ER/TN positive and HER-2/anthony negative. She underwent left modified radical mastectomy on 10/29/2013. She received adjuvant chemotherapy with 4 cycles of docetaxel/cyclophosphamide completed in March 2014, complicated with grade 2 peripheral neuropathy. She completed adjuvant radiation treatment on 06/03/2014. She began on adjuvant hormonal therapy with anastrozole 1 mg daily in April 2014. It was stopped in October 2016 due to worsening pancytopenia. In August 2017 she began further adjuvant hormonal therapy with exemestane 25 mg daily. As of her follow-up visit here on 11/06/2017 she was having some fatigue with it, but it was tolerable. Unfortunately, the fatigue continued to worsen, to the point that she did have to stop taking it. In December 2017 she began further adjuvant hormonal therapy with tamoxifen 20 mg daily. As of her followup visit on 02/09/2019 the tamoxifen was put on hold due to fatigue and significant worsening of joint/bone pain. She was then followed on observation/expectant management. During follow-up she has had some fatigue and musculoskeletal pain, which is somewhat variable. She recently had COVID-19 virus infection, but she has had uneventful recovery. Overall, she has been doing well clinically with no evidence of recurrence of the breast cancer. She continues expectant management. I will see her again in 6 months. 2. She developed progressive pancytopenia since August 2016. Her bone marrow aspiration/biopsy on 10/11/2016 was consistent with acute promyelocytic leukemia. She underwent induction therapy with arsenic trioxide and Atra at [facility] from 10/20/2016 to 12/05/2016. She then began maintenance therapy with arsenic trioxide/prednisone together with Atra. She completed her last treatment on 07/05/2017. As of her follow-up at [facility] on 11/04/2017, her leukemia appeared to be in sustained remission. During her further follow-up her blood counts have remained adequate and stable. Thus far there has been no evidence of relapse of the leukemia. She remains on observation/expectant management. 3. She has degenerative arthritis and she has persistent neuropathy pain following chemotherapy. She has had adequate symptomatic management with hydrocodone/APAP, and that will be continued at the same dosage. Signed By: Sergio Walton M.D. <<Signature on File>>
== END 2021-10-30 10:56 | disposition home or self-care (01) ==
PROVIDERS: PCP Electrodiagnostic Medicine; Visit Provider Internal Medicine Medical Oncology
DX: C92.41 Acute promyelocytic leukemia, in remission (principal); D61.818 Other pancytopenia; G62.9 Polyneuropathy, unspecified; I10 Essential (primary) hypertension; E11.9 Type 2 diabetes mellitus without complications; E78.5 Hyperlipidemia, unspecified; K21.9 Gastro-esophageal reflux disease without esophagitis; G25.81 Restless legs syndrome; F41.9 Anxiety disorder, unspecified; F32.A Depression, unspecified; Z79.899 Other long term (current) drug therapy; Z85.3 Personal history of malignant neoplasm of breast; Z92.21 Personal history of antineoplastic chemotherapy; Z86.16 Personal history of COVID-19
CPT/HCPCS: 36415; 80053; 85025; 99214

== ENCOUNTER 2021-12-18 08:26 | Outpatient (CLI) | payer MEDICARE, SELFPAY ==
--- NOTE | 2021-12-18 08:41 | MM_ITS ---
WS: [id number] VIEWS: MLO, CC, and ML views right breast only 3D digital tomosynthesis is also included in this exa m. Comparison made with prior exam of 12/04/2017, 12/31/2018, 01/19/2020, and 01/06/2021.. Findings: There was no sign of mass, architectural distortion or suspicious calcification in either breast. Sc attered fibroglandular densities MM/[place] [id number] Impression: BI-RADS: 2-Benign FOLLOW-UP: 1 Year Follow-up This mammogram was also analyzed by the Computer Aided Detection System R2 Imag e [facility] Clinical Specialist.
== END 2021-12-18 08:27 | disposition home or self-care (01) ==
LOC: RAD 08:28
PROVIDERS: PCP Electrodiagnostic Medicine; Visit Provider Internal Medicine Medical Oncology
DX: C50.112 Malignant neoplasm of central portion of left female breast (principal)
CPT/HCPCS: 77061

== ENCOUNTER 2022-01-29 11:27 | Emergency (ER) | payer MEDICARE, SELFPAY ==
[2022-01-29] VITALS (8 sets, daily range): BP systolic 132–192; BP diastolic 80–112; PULSE 60–76; RESP 17–21; TEMP 36.7; O2SAT 92–96
--- NOTE | 2022-01-29 11:31 | XRR_ITS ---
PROCEDURE INFORMATION: Exam: XR Chest Exam date and time: 01/29/2022 11:46 AM Age: 76 years old Clinical indication: Chest wall pain; Additional info: Chest pain TECHNIQUE: Imaging protocol: XR of the chest. Views: 1 view. COMPARISON: CR Chest 2 views* [id number] 07/27/2019 4:03 PM FINDINGS: Lungs: Diffuse coarsening of the lung parenchyma. No consolidation. Pleural spaces: No pleural effusion. No pneumothorax. Heart/Mediastinum: No cardiomegaly. Bones/joints: Visualized osseous structures are intact. XR/XR chest 1V portable [id number] IMPRESSION: No acute findings.
--- NOTE | 2022-01-29 11:32 | ECG_ITS ---
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 Measurements Intervals [place] Rate: 65 P: 20 AR: 161 QRS: -10 QRSD: 101 T: 21 QT: 391 QTc: 409 Interpretive Statements SINUS RHYTHM Compared to ECG 12/17/2016 01:44:20 Sinus arrhythmia no longer present Electronically Signed On 01-29-2022 19:42:24 CDT by Andrew Salguero M.D. [id number]
--- NOTE | 2022-01-29 12:04 | CTR_ITS ---
PROCEDURE INFORMATION: Exam: CTA Chest With Contrast Exam date and time: 01/29/2022 1:05 PM Age: 76 years old Clinical indication: Shortness of breath; Radiating; Prior surgery; Surgery type: Left mastectomy; Patient HX: C/O chest pain with posterior radiation and SOB. History of breast cancer. ; Additional info: Concern for pe TECHNIQUE: Imaging protocol: Computed tomographic angiography of the chest with contrast. 3D rendering (Not supervised by radiologist): MIP and/or 3D reconstructed images were created by the technologist. Total images: 2 Radiation optimization: All CT scans at this facility use at least one of these dose optimization techniques: automated exposure control; mA and/or kV adjustment per patient size (includes targeted exams where dose is matched to clinical indication); or iterative reconstruction. Contrast material: OMNI 350; Contrast volume: 50 ml; Contrast route: INTRAVENOUS (IV); COMPARISON: CTA Chest-Pulmonary Emb [id number] 01/07/2017 3:03 PM RADIATION DOSE METRICS: Total DLP (mGy-cm): 519.18 FINDINGS: Pulmonary arteries: Pulmonary artery evaluation of good technical quality with no pulmonary artery embolism identified. Pulmonary vascular congestion. Aorta: Dilated ascending thoracic aorta measured at 4.1 cm. Other arteries: Moderate atherosclerotic disease is evident. Lungs: Unremarkable. No consolidation. No masses. Pleural spaces: Unremarkable. No pneumothorax. No pleural effusion. Heart: There is moderate coronary arterial calcification present. Cardiomegaly. Lymph nodes: Calcified mediastinal and hilar nodes noted. Numerous mildly prominent upper abdominal lymph nodes with the largest anterior to the caudate lobe of the liver and measuring 13 mm in short axis diameter. Liver: Liver contour changes raise suspicion for cirrhosis. Gallbladder and bile ducts: Cholelithiasis is present without cholecystitis. No gallbladder wall thickening or pericholecystic fluid collection. Kidneys and ureters: 17 mm Left kidney cyst incompletely evaluated due to no IV contrast. Bones/joints: Mild degenerative changes of the left shoulder are noted. Mild degenerative changes of the right shoulder are noted. Moderate spinal degenerative changes. Soft tissues: There has been a left mastectomy. CT/CT angio chest PE protcl [id number] IMPRESSION: 1. Dilated ascending thoracic aorta measured at 4.1 cm. 2. No pulmonary artery embolism identified. 3. Cardiomegaly with pulmonary vascular congestion. 4. Cholelithiasis is present without cholecystitis. No gallbladder wall thickening or pericholecystic fluid collection. 5. Liver contour changes raise suspicion for cirrhosis. Recommend correlation with risk factors and liver function tests. 6. Numerous mildly prominent upper abdominal lymph nodes with the largest anterior to the caudate lobe of the liver and measuring 13 mm in short axis diameter.
[2022-01-29 12:06] LABS: Basophils % 0.6 %; Eosinophils # 0.1 10^3/uL (0.0-0.8); Eosinophils % 2.1 %; Hematocrit 45.4 % (37.0-47.0); Lymphocytes # 1.8 10^3/uL (0.8-4.8); Lymphocytes % 37.8 %; Mean Corpuscular Hemoglobin 29.7 pg (28.0-34.0); Mean Corpuscular Volume 89.9 fl (81-99); Mean Platelet Volume 12.4 fL (7.4-10.4); Monocytes # 0.5 10^3/uL (0.2-0.9); Monocytes % 9.8 %; Neutrophils # 2.33 10^3/uL (1.8-7.7); Neutrophils % 49.5 %; Nucleated Red Blood Cells % 0 %; Platelet Count 117 10^3/cmm (130-400); Red Blood Count 5.05 10^6/uL (4.1-5.3); White Blood Count 4.7 10^3/uL (4.0-10.0)
--- NOTE | 2022-01-29 12:07 | W.ED.CHESTPA ---
HPI - Chest Pain General: Chief Complaint: Chest Pain Stated Complaint: Chest pains and nausea Time Seen by Provider: 01/29/22 11:56 History of Present Illness: Patient comes in with chest pain. She describes it as epigastric/lower chest pain which is dull in nature, but radiates into the back and is sharp. States it hurts worse when she lays down. Associated with nausea. Describes it as constant. Started a couple of days ago while camping. States she has a history of an episode of pancreatitis 30 years ago with an unknown cause. She also has a history of cancer. Associated symptoms: Reports abdominal pain and nausea; Deny dyspnea, fever(s), palpitations or vomiting Review of Systems Const: Denies: fever(s) or body aches Eyes: Denies: change in vision or blurry vision ENMT: Denies: throat pain or odynophagia Card: Reports: chest pain; Denies: palpitations Resp: Denies: dyspnea or productive cough GI: Reports: abdominal pain and nausea; Denies: vomiting : Denies: flank pain or dysuria Musc: Denies: neck pain or back pain Skin/Breast: Denies: rash or pruritus Neuro: Denies: headache(s) or numbness in extremities Psych: Denies: anxiety or change in appetite Endo: Denies: polyuria or excessive sweating PFSH ED PFSH: Medical History Acute promyelocytic leukemia Breast cancer Hyperlipidemia Hypertension Pancreatitis Surgical History History of carpal tunnel release History of left mastectomy 2013 History of surgery 2016- port placement 2020 - port removal Social History Smoking and tobacco status: former smoker (1980 ) Physical Exam Const: COMMON NORMALS: no acute distress, patient oriented x3, healthy appearing and alert HENMT: COMMON NORMALS: normocephalic and atraumatic HEAD & SCALP: normocephalic and atraumatic Eye: COMMON NORMALS: Equal, round and reactive pupils present and EOMs intact bilaterally PUPIL: Yes Equal, round and reactive pupils present Neck/C-Spine: COMMON NORMALS: full ROM and supple Resp: COMMON NORMALS: normal respiratory effort, No retractions and No use of accessory muscles Cardio: COMMON NORMALS: regular rate and regular rhythm RATE: regular rate RHYTHM: regular rhythm GI: COMMON NORMALS: Normal to inspection, nondistended, normoactive bowel sounds present and Soft to palpation PALPATION: Yes Soft to palpation OTHER: Epigastric tenderness to palpate Back/Pelvis: COMMON NORMALS: thoracic and lumbar spine normal to inspection and no thoracic nor lumbar tenderness Extremity: COMMON NORMALS: normal to inspection and full ROM Neuro: COMMON NORMALS: patient oriented x3 SENSORIUM/ORIENTATION: Yes alert Psych: COMMON NORMALS: mental status grossly normal and cooperative Skin: COMMON NORMALS: no rashes or lesions noted and no wounds GENERAL SKIN EXAM: no rashes or lesions noted Course Vital Signs: Vital signs: Vital Signs Temperature 98.1 F 01/29/22 11:43 Pulse Rate 60 01/29/22 15:00 Respiratory Rate 20 H 01/29/22 13:30 Blood Pressure 144/90 01/29/22 15:00 Pulse Oximetry 92 01/29/22 15:00 MDM - Chest Pain Medical Decision Making Patient comes in with chest pain. She describes it as epigastric/lower chest pain which is dull in nature, but radiates into the back and is sharp. States it hurts worse when she lays down. Associated with nausea. Describes it as constant. Started a couple of days ago while camping. States he has a history of an episode of pancreatitis 30 years ago with an unknown cause. She also has a history of cancer. Will check labs, x-ray, CT, EKG, and reassess. On reassessment I talked to the patient about the test results. I discussed her CT findings including the dilation of her ascending aorta. CT was read as no dissection. We will refer her to CT surgery and discharged with precautions to return for worsening or changing symptoms. Lab Data : 01/29/22 11:55 01/29/22 12:16 Radiology Impressions Chest X-Ray 01/29/22 11:31 IMPRESSION: No acute findings. Chest CTA 01/29/22 12:04 IMPRESSION: 1. Dilated ascending thoracic aorta measured at 4.1 cm. 2. No pulmonary artery embolism identified. 3. Cardiomegaly with pulmonary vascular congestion. 4. Cholelithiasis is present without cholecystitis. No gallbladder wall thickening or pericholecystic fluid collection. 5. Liver contour changes raise suspicion for cirrhosis. Recommend correlation with risk factors and liver function tests. 6. Numerous mildly prominent upper abdominal lymph nodes with the largest anterior to the caudate lobe of the liver and measuring 13 mm in short axis diameter. Laboratory Results WBC 4.7 10^3/uL (4.0-10.0) 01/29/22 11:55 RBC 5.05 10^6/uL (4.1-5.3) 01/29/22 11:55 Hgb 15.0 g/dL (11.5-15.3) 01/29/22 11:55 Hct 45.4 % (37.0-47.0) 01/29/22 11:55 MCV 89.9 fl (81-99) 01/29/22 11:55 MCH 29.7 pg (28.0-34.0) 01/29/22 11:55 MCHC 33.0 g/dL (30.0-36.0) 01/29/22 11:55 RDW 13.0 % (12.1-15.1) 01/29/22 11:55 Plt Count 117 10^3/cmm (130-400) L 01/29/22 11:55 MPV 12.4 fL (7.4-10.4) H 01/29/22 11:55 Neut % (Auto) 49.5 % 01/29/22 11:55 Lymph % (Auto) 37.8 % 01/29/22 11:55 [place] % (Auto) 9.8 % 01/29/22 11:55 Eos % (Auto) 2.1 % 01/29/22 11:55 Baso % (Auto) 0.6 % 01/29/22 11:55 Neut # (Auto) 2.33 10^3/uL (1.8-7.7) 01/29/22 11:55 Lymph # (Auto) 1.8 10^3/uL (0.8-4.8) 01/29/22 11:55 [place] # (Auto) 0.5 10^3/uL (0.2-0.9) 01/29/22 11:55 Eos # (Auto) 0.1 10^3/uL (0.0-0.8) 01/29/22 11:55 Baso # (Auto) 0.0 10^3/uL (0.0-0.1) 01/29/22 11:55 Nucleated RBC % (auto) 0 % 01/29/22 11:55 Nucleated RBCs # 0.0 /100WBC 01/29/22 11:55 Sodium 137 mmol/L (136-145) 01/29/22 12:16 Potassium 3.6 mmol/L (3.5-5.1) 01/29/22 12:16 Chloride 100 mmol/L (98-107) 01/29/22 12:16 Carbon Dioxide 27 mmol/L (22-29) 01/29/22 12:16 Anion Gap 13.6 (5-19) 01/29/22 12:16 BUN 22 mg/dL (8-23) 01/29/22 12:16 Creatinine 0.9 mg/dL (0.5-0.9) 01/29/22 12:16 GFR Calculation Not Reportable 01/29/22 12:16 Glucose 107 mg/dL (65-115) 01/29/22 12:16 Calculated Osmolality 288 mOsm/kg (285-295) 01/29/22 12:16 Calcium 10.0 mg/dL (8.5-10.5) 01/29/22 12:16 Troponin T Baseline 25 ng/L (0-10) H 01/29/22 12:16 Troponin T 120 Minute 25.10 ng/L (0-10) H 01/29/22 14:22 Delta Troponin T 0.10 ABS# (0-10) 01/29/22 14:22 Lipase 50 U/L (13-60) 01/29/22 12:16 Discharge Plan Discharge Patient Disposition: Home Clinical Impression: Nonspecific chest pain Condition: Stable Prescriptions: No Action atorvastatin 10 mg tablet 10 mg PO DAILY 0RF gabapentin 300 mg capsule 300 mg PO TID 0RF ropinirole 1 mg tablet 1 mg PO TID 0RF Rx Instructions: 1/2 at noon,1 at 5 pm, 1.5 at hs losartan 50 mg tablet 50 mg PO DAILY 0RF hydrocodone-acetaminophen 7.5-325 mg/15 mL solution 15 ml PO Q6H PRN (Reason: pain) 0RF cholecalciferol (vitamin D3) [Vitamin D3] 50 mcg (2,000 unit) tablet 50 mcg PO DAILY 0RF meloxicam [Mobic] 15 mg tablet 15 mg PO DAILY Qty: 30 0RF calcium carbonate [Calcium 600] 600 mg calcium (1,500 mg) Tablet 600 mg PO BID 0RF Discharge Orders: Discharge ED (Routine); Ordered 01/29/22 Ordered By: Diego Wallace Referrals: Hector Alatorre DO [Primary Care Provider] - Activity Restrictions/Additional Instructions: Follow-up with cardiothoracic surgery regarding the dilation of your aorta. Coding Level of Care Code ED Claim Review Medical Director for Chg Fwd Exam Comprehensive
[2022-01-29 12:37] LABS: Anion Gap 13.6 (5-19); Blood Urea Nitrogen 22 mg/dL (8-23); Carbon Dioxide 27 mmol/L (22-29); Chloride 100 mmol/L (98-107); Glucose 107 mg/dL (65-115); Osmolality Calculated 288 mOsm/kg (285-295); Potassium 3.6 mmol/L (3.5-5.1); Sodium 137 mmol/L (136-145)
[2022-01-29] MEDS: ondansetron 2 mg/ML SDV 2 mL 4 MG IVP (12:37)
[2022-01-29 12:38] LABS: Troponin(5th) Baseline 25 ng/L (0-10)
[2022-01-29] MEDS: iohexol 350 mg/mL 100 mL Btl IV (13:14)
--- NOTE | 2022-01-29 13:32 | ECG_ITS ---
[facility] Test Date: 2022-01-29 Pat Name: Siobhan Oliver Department: Room: Gender: Female Manager Imaging: : 1945 Requested By: Andres Little Order Number: [id number] Aury MD: Andrew Salguero M.D. Measurements Intervals [place] Rate: 56 P: 17 OR: 167 QRS: -3 QRSD: 97 T: 27 QT: 424 QTc: 412 Interpretive Statements SINUS BRADYCARDIA Compared to ECG 01/29/2022 11:50:21 Sinus rhythm no longer present Electronically Signed On 01-29-2022 19:43:50 CDT by Andrew Salguero M.D. [id number]
[2022-01-29 15:09] LABS: Lipase 50 U/L (13-60)
--- NOTE | 2022-01-31 11:45 | DCPLANNER ---
Addendum entered by Harper Fuchs 02/09/22 07:03: Patient had a follow up appointment scheduled for 02.08.[address] Dunne at [facility] - patient did attend appointment. Original Note: catering manager had message to schedule a follow up appointment for patient with cardiology, Dr. Dunne. catering manager sent patients information to the front office staff at [facility]. Patients information will be printed and reviewed. Clinic will call patient with appointment information.
== END 2022-01-29 15:50 | disposition home or self-care (01) ==
PROVIDERS: Emergency Medicine; Emergency Provider Emergency Medicine; PCP Electrodiagnostic Medicine
DX: R07.9 Chest pain, unspecified (principal); I10 Essential (primary) hypertension; E78.5 Hyperlipidemia, unspecified
CPT/HCPCS: 71045; 71275; 80048; 83690; 84484; 85025; 93005; 96374; 99285; J2405; Q9967

== ENCOUNTER → 2022-02-08 11:03 | Outpatient (BNVA) | payer MEDICARE, SELFPAY | PROVIDERS: PCP Electrodiagnostic Medicine; Visit Provider Thoracic Surgery (Cardiothoracic Vascular Surgery) | DX: Z09 Encounter for follow-up examination after completed treatment for conditions other than malignant neoplasm (principal); I71.2 Thoracic aortic aneurysm, without rupture; Z87.891 Personal history of nicotine dependence | CPT/HCPCS: 99203 ==

== ENCOUNTER 2022-07-25 11:53 | Oncology outpatient (recurring) (ONCR) | payer MEDICARE, SELFPAY ==
[2022-07-25 12:14] LABS: Basophils % 0.6 %; Eosinophils # 0.1 10^3/uL (0.0-0.8); Eosinophils % 1.5 %; Hematocrit 45.5 % (37.0-47.0); Hemoglobin 14.7 g/dL (11.5-15.3); Lymphocytes # 1.4 10^3/uL (0.8-4.8); Lymphocytes % 29.6 %; Mean Corpuscular HGB Conc 32.3 g/dL (30.0-36.0); Mean Corpuscular Hemoglobin 29.6 pg (28.0-34.0); Mean Corpuscular Volume 91.5 fl (81-99); Mean Platelet Volume 12.1 fL (7.4-10.4); Monocytes # 0.5 10^3/uL (0.2-0.9); Monocytes % 9.7 %; Neutrophils # 2.69 10^3/uL (1.8-7.7); Neutrophils % 58.2 %; Nucleated Red Blood Cells % 0 %; Platelet Count 127 10^3/cmm (130-400); Red Blood Count 4.97 10^6/uL (4.1-5.3); Red Cell Distribution Width 13.2 % (12.1-15.1); White Blood Count 4.6 10^3/uL (4.0-10.0)
[2022-07-25 12:36] LABS: Alanine Aminotransferase 25 U/L (0-33); Albumin Level 3.8 g/dL (3.5-5.2); Alkaline Phosphatase 81 U/L (35-105); Anion Gap 12.4 (5-19); Aspartate Amino Transferase 29 U/L (0-32); Blood Urea Nitrogen 25 mg/dL (8-23); Calcium 10.1 mg/dL (8.5-10.5); Carbon Dioxide 30 mmol/L (22-29); Chloride 100 mmol/L (98-107); Globulin 3.7 g/dL (1.3-4.6); Glucose 89 mg/dL (65-115); Lactate Dehydrogenase 208 U/L (135-214); Osmolality Calculated 292 mOsm/kg (285-295); Potassium 3.4 mmol/L (3.5-5.1); Sodium 139 mmol/L (136-145); Total Bilirubin 0.9 mg/dL (0.15-1.2); Total Protein 7.5 g/dL (6.6-8.7)
== END 2022-08-01 23:59 | disposition home or self-care (01) ==
LOC: ONCMED 11:53
PROVIDERS: PCP Electrodiagnostic Medicine; Visit Provider Internal Medicine Medical Oncology
DX: Z08 Encounter for follow-up examination after completed treatment for malignant neoplasm (principal); Z85.3 Personal history of malignant neoplasm of breast; Z90.12 Acquired absence of left breast and nipple; R53.0 Neoplastic (malignant) related fatigue; M19.90 Unspecified osteoarthritis, unspecified site; E87.6 Hypokalemia; C92.41 Acute promyelocytic leukemia, in remission; Z79.891 Long term (current) use of opiate analgesic; Z79.899 Other long term (current) drug therapy; Z92.21 Personal history of antineoplastic chemotherapy; Z92.25 Personal history of immunosuppression therapy
CPT/HCPCS: 36415; 80053; 83615; 85025; 99214

== ENCOUNTER 2022-08-06 11:50 | Outpatient (CLI) | payer MEDICARE, SELFPAY ==
--- NOTE | 2022-08-06 12:00 | CT_ITS ---
WS: [id number] CTA THORACIC AORTA WITH AND WITHOUT CONTRAST. HISTORY: 6 month follow-up dilated thoracic aorta. TECHNIQUE: CT imaging of the thorax is performed with and without contrast. After noncontrast imaging is performed, CT angiogram is performed during injection of Omnipaque 350; 75 mL IV.. Sagittal and c oronal reconstructions, sagittal and coronal MIP imaging is submitted. All CT scans at [facility] use at least one of these dose optimization techniques: automated exposure control; mA and/or kV adjustment per patient size (includes targeted exams where dose is matched to clinical indication); or iterative reconstruction. DLP: 1118.12 mGy.cm COMPARISON: 01/29/2022 Minimal ectasia and atherosclerosis thoracic aorta. No aneurysmal dilatation. Maximum diameter of the ascending aorta 4.0 cm. Normal tapering through the arch. Descending aorta at the level of the trach ea is 3.2 cm. There is scattered plaque through the aortic arch. No dilatation of the annulus. Mild s cattered plaque and intimal thickening. No ulcerated plaque. No dissection. Normal size pulmonary artery. No central arterial filling defect. Mild enlargement of the LEFT heart chambers. No RIGHT heart strain. No LEFT atrial appendage thrombus. No pericardial or pleural effusio ns. Mild emphysema. No pulmonary calcification or mass. No pneumonia. Bovine arch. No adenopathy. Small h iatal hernia. No adrenal mass. The visualized liver is negative. Several small stable lymph nodes yuridia r the celiac axis and aortic hiatus. Thoracolumbar scoliosis and degenerative disc disease. CT/CT angio chest [id number] IMPRESSION: 1. Mildly ectatic ascending thoracic aorta with maximum diameter 4.0 cm. No an eurysmal dilatation. 2. Scattered calcified plaque and intimal thickening. 3. Emphysema. 4. No pneumonia or mass.
[2022-08-06] MEDS: iohexol 350 mg/mL 500 mL Btl (per mL) IV (12:54)
== END 2022-08-06 11:51 | disposition home or self-care (01) ==
PROVIDERS: PCP Electrodiagnostic Medicine; Visit Provider Thoracic Surgery (Cardiothoracic Vascular Surgery)
DX: I71.20 Thoracic aortic aneurysm, without rupture, unspecified (principal); J43.9 Emphysema, unspecified
CPT/HCPCS: 71275; Q9967

== ENCOUNTER 2023-01-24 10:13 | Outpatient (CLI) | payer MEDICARE, SELFPAY ==
--- NOTE | 2023-01-24 10:52 | MM_ITS ---
WS: [id number] Right breast diagnostic 3D tomosynthesis digital mammogram, 01/24/2023 Clinical Data: HX OF BREAST CA Comparison: 12/18/2021, 01/06/2021, 01/19/2020, 12/31/2018, 12/04/2017, 09/26/2015, 09/22/2015, 09/16/2013. Findings: The right breast shows fibroglandular tissue. There are no spiculated masses or clustered calcificati ons. There are no secondary signs of carcinoma. MM/[place] [id number] Impression: 1. Negative right breast mammogram unchanged. 2. Recommend annual right breast mammogram. BIRADS: 1-Negative FOLLOW UP: 1 Year Follow-up The CAD thread checker was used.
[2023-01-24 11:26] LABS: Blood Urea Nitrogen 24 mg/dL (8-23)
[2023-01-24] MEDS: iohexol 350 mg/mL 500 mL Btl (per mL) IV (11:29)
--- NOTE | 2023-01-24 12:00 | CT_ITS ---
WS: [id number] CTA THORACIC AORTA WITH AND WITHOUT CONTRAST HISTORY: ascending thoracic aortic aneurysm TECHNIQUE: CT imaging of the thorax is performed with and without contrast. After noncontrast imaging is performed, CT angiogram is performed during injection of Omnipaque 350; 100 mL IV.. Sagittal and coronal reconstructions, sagittal and coronal MIP imaging is submitted. All CT scans at [facility] use at least one of these dose optimization techniques: automated exposure control; mA and/or k V adjustment per patient size (includes targeted exams where dose is matched to clinical indication); or iterative reconstruction. DLP: 832.76 mGy.cm COMPARISON: 08/06/2022 and 01/07/2017 Good opacification of the thoracic aorta. Scattered calcified plaque throughout the thoracic aorta. T he maximum diameter of the ascending aorta on today's examination is 3.6 cm. Measurement is not as gr eat as on the prior study. The descending aorta is mildly ectatic with scattered moderate calcified p laque and small amount of intimal thickening. Pulmonary artery is enlarged at 3.6 cm in diameter. Bovine arch. Great vessels are intact. No high-grade stenosis identified. RIGHT subclavian is obscure d by the contrast injection. Mild cardiac enlargement. Greatest enlargement of the LEFT atrium. No atrial appendage thrombus. Mild hyperexpansion. No mass or nodule. No pneumonia. No pericardial or pleural effusions. Prior LEFT mastectomy. Small hiatal hernia. No adrenal mass. Advanced degenerative changes throughout the thoracic and upper lumbar spine. Disc spaces are narrowe d with bony sclerosis. Vacuum disc phenomenon at several levels. CT/CT angio chest [id number] IMPRESSION: 1. Maximum diameter ascending thoracic aorta is 3.6 cm today. Maximum diameter on the most recent study was 4.0 cm. Ectatic thoracic aorta with atherosclerot ic plaque. No aneurysm. 2. Mild enlargement the pulmonary artery. 3. Cardiac enlargement. 4. Prior LEFT mastectomy. 5. Chronic emphysema. No mass or nodule.
== END 2023-01-24 10:14 | disposition home or self-care (01) ==
PROVIDERS: PCP Electrodiagnostic Medicine; Visit Provider Thoracic Surgery (Cardiothoracic Vascular Surgery)
DX: Z08 Encounter for follow-up examination after completed treatment for malignant neoplasm (principal); I51.7 Cardiomegaly; I77.810 Thoracic aortic ectasia; Z85.3 Personal history of malignant neoplasm of breast; Z90.12 Acquired absence of left breast and nipple
CPT/HCPCS: 71275; 77061; 82565; 84520; G0279; Q9967

== ENCOUNTER → 2023-01-24 13:53 | Outpatient (BNVA) | payer MEDICARE, SELFPAY | PROVIDERS: PCP Electrodiagnostic Medicine; Visit Provider Thoracic Surgery (Cardiothoracic Vascular Surgery) | DX: I77.810 Thoracic aortic ectasia (principal); Z87.891 Personal history of nicotine dependence; Z08 Encounter for follow-up examination after completed treatment for malignant neoplasm | CPT/HCPCS: 71275; 77061; 82565; 84520; 99213; G0279; Q9967 ==

== ENCOUNTER 2024-01-23 13:26 | Outpatient (CLI) | payer MEDICARE, SELFPAY ==
--- NOTE | 2024-01-23 14:00 | CTR_ITS ---
PROCEDURE INFORMATION: Exam: CTA Chest Without And With Contrast Exam date and time: 01/23/2024 2:42 PM Age: 78 years old Clinical indication: Condition or disease; Prior surgery; Surgery date: 6+ months; Surgery type: Left breast; Patient HX: Yearly follow up thoracic aneurysm; Additional info: Thoracic aortic ectasia TECHNIQUE: Imaging protocol: Computed tomographic angiography of the chest without and with contrast. Exam focused on the arteries. 3D rendering (Not supervised by radiologist): MIP and/or 3D reconstructed images were created by the technologist. Radiation optimization: All CT scans at this facility use at least one of these dose optimization techniques: automated exposure control; mA and/or kV adjustment per patient size (includes targeted exams where dose is matched to clinical indication); or iterative reconstruction. Contrast material: OMNI 350; Contrast volume: 100 ml; Contrast route: INTRAVENOUS (IV); COMPARISON: No relevant prior studies available. RADIATION DOSE METRICS: Total DLP (mGy-cm): 816.28 FINDINGS: Pulmonary arteries: Normal. No pulmonary emboli. Aorta: Moderate calcified plaque involves the ascending thoracic aorta and aortic arch. There is mild dilatation of the ascending thoracic aorta with a diameter of 3.9 cm. No evidence of dissection or rupture. Lungs: Both lungs demonstrate mild chronic subpleural interstitial coarsening. Pleural spaces: Unremarkable. No pneumothorax. No pleural effusion. Heart: Unremarkable. No cardiomegaly. No pericardial effusion. Lymph nodes: Unremarkable. No enlarged lymph nodes. Bones/joints: The thoracic spine demonstrates multilevel vertebral body spurring and degenerative disc disease. No acute fracture noted. Soft tissues: Unremarkable. CT/CT angio chest [id number] IMPRESSION: 1. Stable ectasia of the ascending thoracic aorta 2. Mild chronic lung changes 3. Multilevel arthritic changes involving the thoracic spine
[2024-01-23 14:42] LABS: Blood Urea Nitrogen 21 mg/dL (8-23)
[2024-01-23] MEDS: iohexol 350 mg/mL 500 mL Btl (per mL) IV (14:58)
== END 2024-01-23 13:27 | disposition home or self-care (01) ==
LOC: RAD 13:26
PROVIDERS: PCP Electrodiagnostic Medicine; Visit Provider Thoracic Surgery (Cardiothoracic Vascular Surgery)
DX: I77.810 Thoracic aortic ectasia (principal); M51.34 Other intervertebral disc degeneration, thoracic region
CPT/HCPCS: 71275; 82565; 84520; Q9967

== ENCOUNTER → 2024-07-09 10:17 | Outpatient (BNVA) | payer MEDICARE, SELFPAY | PROVIDERS: PCP Electrodiagnostic Medicine; Visit Provider Podiatrist Foot & Ankle Surgery | DX: M79.671 Pain in right foot (principal); M21.611 Bunion of right foot; M20.21 Hallux rigidus, right foot | CPT/HCPCS: 73630; 99203 ==

== ENCOUNTER 2025-02-24 09:48 | Outpatient (CLI) | payer MEDICARE, SELFPAY ==
--- NOTE | 2025-02-24 09:56 | CT_ITS ---
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 After noncontrast imaging is performed, CT angiogram is performed during injection of Omnipaque 350; 100 mL IV.. Sagittal and coronal reconstructions, sagittal and coronal MIP imaging is submitted. All CT scans at [facility] use at least one of these dose optimization techniques: automated exposure control; mA and/or kV adjustment per patient size (includes targeted exams where dose is matched to clinical indication); or iterative reconstruction. DLP: 933.01 mGy.cm COMPARISON: 01/23/2024, 01/24/2023 Good contrast opacification of the thoracic aorta. Ectatic aorta with atherosclerotic plaque at noncalcified plaque. Maximum transverse diameter of the ascending aorta is 3.6 cm. Sinus of Valsalva 3.4 cm and sinotubular junction 2.3 cm. No progression of dilatation/ectasia. Normal diameter of the arch. Descending aortic diameter at the level of the trachea is 3.0 cm. Aorta is distally ectatic. Normal great vessels. Bovine arch. Mildly prominent pulmonary artery to 3.4 cm. No filling defects in the proximal pulmonary artery. Mild cardiac enlargement. No pericardial or pleural effusions. Scattered coronary artery calcifications. Calcification of the mitral annular valve plane. There are a few scattered areas of very subtle groundglass attenuation. Areas of groundglass attenuation are predominantly in the RIGHT lung, greater distribution RIGHT lower lobe. No area of consolidation. LEFT mastectomy. Mild hepatic steatosis. Spleen is enlarged although incompletely included on this examination. Cirrhotic appearing liver. Small hiatal hernia. Degenerative disc disease in the thoracic spine. Endplate hypertrophic osteophytes at all levels. CT/CT angio chest [id number] IMPRESSION: 1. Ectatic ascending thoracic aorta with a maximum diameter of 3.6 cm. 2. No dilatation of the sinotubular junction or sinus of Valsalva. 3. Moderate atherosclerotic plaque within the thoracic aorta. 4. Mild pulmonary hypertension. 5. New very subtle areas of scattered groundglass attenuation throughout the R IGHT lung. Consider mild hypersensitivity pneumonitis. 6. Mild cardiac enlargement. 7. LEFT mastectomy. 8. Cirrhosis and splenomegaly.
--- NOTE | 2025-02-24 09:56 | USCV_ITS ---
Siobhan Oliver Age: 79 Gender: F : 1945 Exam Date: 02/24/2025 10:13 Ordering Phys: Hector Alatorre DO Technologist: [place] [facility] [place]: cp sob BP: 120 / 80 HR: 65 Rhythm: Sinus Technical Quality: Adequate MEASUREMENTS (Male / Female) Normal Values 2D ECHO LV Diastolic Diameter PLAX 4.6 cm 4.2 - 5.9 / 3.9 - 5.3 cm IVS Diastolic Thickness 1.1 cm 0.6 - 1.0 / 0.6 - 0.9 cm IVS Systolic Thickness 1.5 cm LVPW Diastolic Thickness 1.1 cm 0.6 - 1.0 / 0.6 - 0.9 cm LVPW Systolic Thickness 1.6 cm LVOT Diameter 2.0 cm LV Ejection Fraction 2D Teich 72.0 % LV Ejection Fraction MOD 4C 61.3 % LV Ejection Fraction MOD 2C 70.0 % LV Ejection Fraction 2C AL 70.3 % LA Diameter 4.9 cm RA Systolic Volume 4C AL 53.9 ml RA Systolic Volume 4C MOD 54.2 ml LA Sys Volume AL 86.3 cm cubed LA Sys Volume Index AL 38.4 cm cubed/m squared Aorta at Sinotubular Diameter 3.0 cm M-MODE LA Ao Ratio MM 1.5 AV Cusp Separation MM 2.3 cm DOPPLER AV Peak Velocity 275.3 cm/s LVOT Peak Velocity 114.0 cm/s AV Area Cont Eq vti 2.1 cm squared AV Area Cont Eq pk 1.3 cm squared MV Peak Velocity 156.0 cm/s MV Area PHT 2.3 cm squared Mitral E to A Ratio 0.9 TV Peak Velocity 245.5 cm/s TR Peak Velocity 288.0 cm/s TR Peak Gradient 33.2 mmHg TV Peak E Velocity 93.0 cm/s PV Peak Velocity 127.0 cm/s FINDINGS Left Ventricle Left ventricle is normal in size. LV systolic function is normal with EF of 60-65%. No regional wall motion abnormalities are seen. Grade 1 diastolic dysfunction. Right Ventricle Normal in size and function Right Atrium Normal in size Left Atrium Dilated Mitral Valve Moderate mitral annular calcification. Mild mitral regurgitation. Aortic Valve Structurally normal valve. Mild aortic regurgitation. No significant stenosis. Tricuspid Valve Mild tricuspid regurgitation. Pulmonary artery systolic pressure is normal. Pulmonic Valve Not well visualized Pericardium Normal. Aorta Normal in size. IVC Not well visualized CONCLUSIONS LV systolic function is normal with EF of 60-65%. Grade 1 diastolic dysfunction. Left atrial dilation. Mild mitral regurgitation. Mild aortic regurgitation. Mild tricuspid regurgitation. Andrew Salguero MD (Electronically Signed) Final Date: 10 March 2025 16:12 S
[2025-02-24] MEDS: iohexol 350 mg/mL 500 mL Btl (per mL) IV (10:44)
== END 2025-02-24 09:49 | disposition home or self-care (01) ==
LOC: RAD 09:51
PROVIDERS: PCP Electrodiagnostic Medicine; Visit Provider Electrodiagnostic Medicine
DX: R01.1 Cardiac murmur, unspecified (principal); I71.21 Aneurysm of the ascending aorta, without rupture; R93.1 Abnormal findings on diagnostic imaging of heart and coronary circulation; I34.81 Nonrheumatic mitral (valve) annulus calcification; I34.0 Nonrheumatic mitral (valve) insufficiency; I35.1 Nonrheumatic aortic (valve) insufficiency; I07.1 Rheumatic tricuspid insufficiency; I70.0 Atherosclerosis of aorta; I27.20 Pulmonary hypertension, unspecified; R91.8 Other nonspecific abnormal finding of lung field; Z90.12 Acquired absence of left breast and nipple; R16.1 Splenomegaly, not elsewhere classified; I25.10 Atherosclerotic heart disease of native coronary artery without angina pectoris; K76.0 Fatty (change of) liver, not elsewhere classified; D73.89 Other diseases of spleen; K44.9 Diaphragmatic hernia without obstruction or gangrene; R93.2 Abnormal findings on diagnostic imaging of liver and biliary tract; M51.34 Other intervertebral disc degeneration, thoracic region; M25.78 Osteophyte, vertebrae
CPT/HCPCS: 71275; 93306